=== PATIENT | female | born 1930 | race African-American/Black ===

== ENCOUNTER → 2016-07-04 | Outpatient (CLI) | payer MEDICARE, MEDICAID | LOC: RAD 09:05 | PROVIDERS: ATTEND Internal Medicine | DX: R10.84 Generalized abdominal pain (principal) | CPT/HCPCS: 74000 ==

== ENCOUNTER 2016-07-16 15:53 | Day surgery (SDC) | payer MEDICARE ==
--- NOTE | 2016-07-16 16:42 | Operative Report ---
Operative Report DATE OF SURGERY: 07/16/16 Operative Report: Pre-op diagnosis: Feeding difficulty Post-op diagnosis: Feeding difficulty Surgery: G-tube replacement Medications: None Tissue removed: None Procedure: The old 22 Sami gastrostomy tube was removed after the balloon was deflated. This was replaced with another 22 Sami tube. There was some granulation tissue around the G-tube site. There was good flow of gastric contents after the tube was replaced. She tolerated the procedure well Plan: Resume feeding OPERATION: .
== END 2016-07-16 17:00 | disposition home or self-care (01) ==
LOC: END 15:53
PROVIDERS: ATTEND Internal Medicine Gastroenterology
PROC: 0D20XUZ Change Feeding Device in Upper Intestinal Tract, External Approach (ICD-10-PCS; principal; 2016-07-16)
DX: R63.3 Feeding difficulties (principal); R47.01 Aphasia
CPT/HCPCS: 43760

== ENCOUNTER 2016-11-04 10:18 | Emergency (ER) | payer MEDICARE, MEDICAID ==
[2016-11-04 11:10] LABS: ABSOLUTE BASOPHILS # (AUTO) 0.1 10^3/uL (0.0-0.2); ABSOLUTE EOSINOPHILS # (AUTO) 0.1 10^3/uL (0.0-0.6); ABSOLUTE LYMPHOCYTES (AUTO) 2.2 10^3/uL (0.5-4.7); ABSOLUTE MONOCYTES (AUTO) 0.8 10^3/uL (0.1-1.4); BASOPHILS % (AUTO) 0.9 % (0-2); EOSINOPHILS % (AUTO) 1.6 % (0-6); HEMATOCRIT 40.4 % (36.0-47.0); HEMOGLOBIN 13.6 g/dL (12.0-15.5); HGB HCT DIFFERENCE 0.4; LYMPHOCYTES % (AUTO) 30.3 % (13-45); MEAN CORPUSCULAR HEMOGLOBIN 29.8 pg (27.0-33.4); MEAN CORPUSCULAR HGB CONC 33.6 g/dL (32.0-36.0); MEAN CORPUSCULAR VOLUME 89 fl (80-97); RED BLOOD COUNT 4.56 10^6/uL (3.72-5.28); RED CELL DISTRIBUTION WIDTH 16.3 % (11.5-14.0); SEGMENTED NEUTROPHILS % (AUTO) 56.2 % (42-78); WHITE BLOOD COUNT 7.1 10^3/uL (4.0-10.5)
[2016-11-04 11:32] LABS: APPEARANCE,URINE CLEAR; BILIRUBIN,URINE NEGATIVE (NEGATIVE); GLUCOSE, URINE NEGATIVE (NEGATIVE); KETONES,URINE NEGATIVE (NEGATIVE); LEUKOCYTE ESTERASE,URINE NEGATIVE (NEGATIVE); NITRITE,URINE NEGATIVE (NEGATIVE); PROTEIN,URINE 100 mg/dL (NEGATIVE); URINE SPECIFIC GRAVITY 1.004; UROBILINOGEN,URINE NEGATIVE mg/dL (<2.0)
--- NOTE | 2016-11-04 11:36 | RADIOLOGY REPORT (SQ) ---
EXAM DESCRIPTION: CHEST SINGLE VIEW COMPLETED DATE/TIME: 11/04/2016 11:18 am REASON FOR STUDY: Short of breath COMPARISON: 10/10/2015 and 10/08/2015 NUMBER OF VIEWS: One view. TECHNIQUE: Single frontal radiographic view of the chest acquired. LIMITATIONS: None. FINDINGS: LUNGS AND PLEURA: Some interstitial change and/or slight vascular congestion again noted. Heart partially obscures the left base, with Patchy basilar change noted. MEDIASTINUM AND HILAR STRUCTURES: Stable. HEART AND VASCULAR STRUCTURES: Cardiomegaly. Some interstitial change and/or slight vascular congest ion. BONES: No acute findings. HARDWARE: Surgical clips lower neck. OTHER: No other significant finding. IMPRESSION: Cardiomegaly. Some interstitial change and/or slight vascular congestion. Patchy cardenas es left lung base. TECHNICAL DOCUMENTATION: JOB ID: [id number] [employer]- All Rights Reserved
[2016-11-04 12:06] LABS: ALANINE AMINOTRANSFERASE 45 U/L (9-52); ALBUMIN 3.7 g/dL (3.5-5.0); ALKALINE PHOSPHATASE 154 U/L (38-126); ANION GAP 11 (5-19); ASPARTATE AMINO TRANSFERASE 33 U/L (14-36); BILIRUBIN,DIRECT 0.2 mg/dL (0.0-0.4); BILIRUBIN,TOTAL 0.4 mg/dL (0.2-1.3); BLOOD UREA NITROGEN 24 mg/dL (7-20); CARBON DIOXIDE 24 mmol/L (22-30); CHLORIDE 104 mmol/L (98-107); CREATINE KINASE 64 U/L (30-135); CREATININE RESULT 0.58 mg/dL (0.52-1.25); GLUCOSE 145 mg/dL (75-110); POTASSIUM 3.9 mmol/L (3.6-5.0); SODIUM 138.7 mmol/L (137-145); TOTAL PROTEIN 8.6 g/dL (6.3-8.2)
[2016-11-04 12:17] LABS: CREATINE KINASE MB 2.68 ng/mL (<4.55)
[2016-11-04 12:18] LABS: TROPONIN I < 0.012 ng/mL
[2016-11-04] MEDS ORDERED: NORMAL SALINE 1000 ML 1,000 ML IV ONE (12:43)
[2016-11-04] MEDS ORDERED: CEFTRIAXONE 1 GM/D5W RTU 50 ML IV ONE (12:45)
--- NOTE | 2016-11-04 12:49 | ER Document Report ---
ED General - General Chief Complaint: Breathing Difficulty Stated Complaint: DIFFICULTY BREATHING Time Seen by Provider: 11/04/16 10:28 Notes: Patient reportedly has been short of breath for a couple of days. 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 She has a feeding tube. She lives at home with family. When EMS arrived on the scene this morning, patient had some wheezes and an oxygen saturation was 89%. They put the patient on 4 L of oxygen and gave her a couple of nebulizer treatments with albuterol in route to the emergency department. Family is concerned that she may have aspirated, which she has done before, or that she may have a UTI because she is gotten this way with those infections previously, as well. Her urine has been very dark yellow. She has not had any fever. Patient does have a history of COPD. Patient has a pacemaker. TRAVEL OUTSIDE OF THE [place] IN LAST 30 DAYS: No - Related Data Allergies/Adverse Reactions: phenytoin sodium [From Dilantin] Allergy (Verified 07/12/16 14:28) phenytoin sodium extended [From Dilantin] Allergy (Verified 07/12/16 14:28) Past Medical History - Social History Smoking Status: Unknown if Ever Smoked Cigarette use (# per day): No Chew tobacco use (# tins/day): No Family History: Reviewed & Not Pertinent, CVA - Past Medical History Cardiac Medical History: Reports: Hx Congestive Heart Failure, Hx Coronary Artery Disease, Hx Hypercholesterolemia, Hx Hypertension, Other - Has a pacemaker. 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, 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 Endocrine Medical History: Reports: Hx Diabetes Mellitus Type 2 GI Medical History: Reports: Hx Gastroesophageal Reflux Disease Musculoskeltal Medical History: Reports Hx Arthritis Psychiatric Medical History: Reports: Hx Dementia Infectious Medical History: Reports: Hx C-Diff Past Surgical History: Reports: Hx Section, Hx Cholecystectomy, Hx Hysterectomy, Hx Orthopedic Surgery - left hip, Hx Thyroid Surgery - Immunizations Hx Diphtheria, Pertussis, Tetanus Vaccination: - unknown Hx Pneumococcal Vaccination: 10/05/14 Review of Systems - Review of Systems Notes: REVIEW OF SYSTEMS: From the family CONSTITUTIONAL : Denies fever. EENT: Denies eye, ear, nose or mouth or throat pain or other symptoms. CARDIOVASCULAR: Denies chest pain. RESPIRATORY: See HPI.. GASTROINTESTINAL: Denies abdominal pain or nausea, vomiting, or diarrhea. GENITOURINARY: See HPI. MUSCULOSKELETAL: Denies back or neck pain. Denies joint pain or swelling. SKIN: Denies rash or skin lesions. NEUROLOGICAL: Residual right-sided paralysis from prior stroke. ALL OTHER SYSTEMS REVIEWED AND NEGATIVE. Physical Exam - Vital signs Vitals: Pulse Ox 97 11/04/16 10:23 Interpretation: No: Hypoxic - Notes Notes: PHYSICAL EXAMINATION: GENERAL: Well-appearing, in no acute distress. Vital signs are all essentially normal at this time. O2 sat 97-98% on room air. Patient did receive 2 nebul[address] treatments on the way here by EMS. HEAD: Atraumatic, normocephalic. NECK: Normal range of motion, supple. LUNGS: Breath sounds clear and equal bilaterally. No wheezes heard at this time. HEART: Regular rate and rhythm without murmurs. ABDOMEN: Soft, nontender. No guarding or rebound. Feeding tube present BACK: No tenderness throughout entire back. EXTREMITIES: Normal range of motion without pain. No edema. NEUROLOGICAL: Patient is nonverbal. She has right sided paralysis residual from her prior stroke. No further testing can be done. SKIN: Warm, dry, no rashes. Course - Re-evaluation Re-evalutation: 11/04/16 12:46 Patient has been stable since her arrival here. She received 2 nebulizers of albuterol in route to the emergency department. She has required no medication since then. She has been on room air the entire time and her oxygen level is staying at the 97-98% level. All of her labs are essentially normal. No elevation of her white count. No significant abnormality of her electrolytes. No UTI evident. Her chest x-ray reveals what could be a small patchy infiltrate in the left base. I feel the patient can be discharged home for treatment there with antibiotics. She has a home nebulizer for albuterol 4 times a day as needed and to advise them to give her 4 times a day, for the next couple of days, and then as needed after that. She also has a steroid medication to use in the nebulizer twice a day. I discussed the plan of care with the family. 11/04/16 20:59 - Vital Signs Vital signs: Temp Pulse Resp BP Pulse Ox 97.7 F 142/75 H 98 11/04/16 12:02 11/04/16 14:38 11/04/16 14:38 - Laboratory Result Diagrams: 11/04/16 10:43 11/04/16 11:37 Laboratory results interpreted by me: 11/04/16 11/04/16 11/04/16 10:43 10:43 11:37 RDW 16.3 H BUN 24 H Glucose 145 H Alkaline Phosphatase 154 H Total Protein 8.6 H Urine Protein 100 H Discharge - Discharge Clinical Impression: Pneumonia Qualifiers: Pneumonia type: due to unspecified organism Laterality: left Lung location: lower lobe of lung Qualified Code(s): J18.1 - Lobar pneumonia, unspecified organism Condition: Stable Disposition: HOME, SELF-CARE Additional Instructions: UPPER RESPIRATORY ILLNESS: You have a viral infection of the respiratory passages -- a "cold." This common infection causes nasal congestion, drainage, and often sore throat and cough. It is highly contagious. The disease usually lasts about 10 to 14 days. There is no "cure" for the viral infection -- it must run its course. If there is a complication, such as bacterial infection in the nose, sinuses, middle ear, or bronchial tubes, antibiotics may be required. The antibiotics won't affect the virus. Drink plenty of fluids. A humidifier may help. An expectorant medication or decongestant may make you more comfortable. Use acetaminophen or ibuprofen for fever or aches. See the doctor if fever persists over two days, if there is any significant worsening of your symptoms, or if you simply fail to improve as expected. PNEUMONIA: Your examination indicates that you have pneumonia. This is an infection of the lung tissue, usually caused by bacteria or a virus. Symptoms include cough, fever, shaking chills, chest pain, shortness of breath, and coughing up bloody sputum. Treatment for bacterial pneumonia includes rest, antibiotics for 10 to 14 days, increasing your clear liquid intake, a cool mist humidifier at your bedside, and fever medication. Often, a repeat chest X-ray is performed in a few weeks--even if you feel better--to ascertain whether the infection has completely resolved and no underlying lung problem is present. You should call the physician if you develop persistent vomiting, high fever that does not respond to fever medication, increasing shortness of breath , confusion, or lethargy. Also, failure to improve within two to three days is an indication for re-examination. ANTIBIOTIC INJECTION: You have been given an antibiotic injection. Sometimes the injection must be combined with antibiotic pills. For some infections, the shot provides all the antibiotic that's needed. Common side effects of antibiotics include nausea, intestinal cramping, or diarrhea. These are very unusual following a shot. Women may develop vaginal yeast infections, and babies can get yeast ( thrush) in the mouth following the use of antibiotics. Contact your physician if you develop significant side effects from this medication. Allergy to this antibiotic can result in hives, wheezing, faintness, or itching. If symptoms of allergy occur, call the doctor at once. ROCEPHIN: You have been given an injection of an antibiotic called Rocephin ( ceftriaxone). Sometimes the injection must be combined with antibiotic pills. For some infections, such as an uncomplicated ear infection, Rocephin provides all the antibiotic that's needed. The antibiotic will be in your body for about two days. For serious infections, we usually repeat doses of Rocephin daily. Side effects are very unusual following a shot. Women may develop vaginal yeast infections, and babies can get yeast (thrush) in the mouth following the use of antibiotics. Contact your physician if you have symptoms with this medication. Allergy to this antibiotic can result in hives, wheezing, faintness, or itching. If symptoms of allergy occur, call the doctor at once. ANTIBIOTIC THERAPY: You have been given an antibiotic prescription. It's important that you take all the medication, unless instructed otherwise by your physician. Failure to complete the entire course can result in relapse of your condition. Common side effects of antibiotics include nausea, intestinal cramping, or diarrhea. Women may develop vaginal yeast infections, and babies can get yeast (thrush) in the mouth following the use of antibiotics. Contact your physician if you develop significant side effects from this medication. Allergy to this antibiotic can result in hives, wheezing, faintness, or itching. If symptoms of allergy occur, stop the medication and call the doctor. LEVOFLOXACIN: You have been given an antibacterial agent, levofloxacin (Levaquin). This medicine is not related to the penicillins, sulfas, cephalosporins, or tetracyclines. It is often given to patients who are allergic to these drugs. It has been chosen for you either because other drugs are not appropriate, or because of the nature of your problem. Levaquin should not be taken with antacids, as these can decrease its effectiveness. It can be taken without regard to meals. LEVAQUIN SHOULD NOT BE TAKEN BY CHILDREN, NURSING WOMEN, OR WOMEN. Although Levaquin is usually well-tolerated, common side effects can include nausea and diarrhea. Contact your doctor if you experience any unusual symptoms while on this medication, such as joint pain or swelling, shortness of breath, wheezing, faintness, or hives. BRONCHOSPASM: You have tightness in the bronchial tubes, called bronchospasm. This often occurs with bronchial infections. Allergies, inhaled chemicals, and polluted or cold air can also provoke bronchospasm. It's more likely in patients with asthma in the family. Emergency treatment of bronchospasm may include adrenaline shots or bronchodilator aerosol. You may feel lightheaded and have a rapid pulse for an hour or two. Rest and get plenty of fluids. At home, we'll treat you with a bronchodilator inhaler. Antibiotics and corticosteroids may be required for some patients. Until you recover, avoid chemical fumes, dusts, pollens, and exercising in very cold or dry air. If you smoke, stop now!! If you develop a fever, increased wheezing, chest pain, or severe shortness of breath, you should contact the doctor immediately. INHALED BRONCHODILATORS: You have received a treatment of and/or prescription for an inhaled bronchodilator -- a medication which stimulates the airways in the lung to dilate. This improves the flow of air in asthma, bronchitis, and emphysema. These medicines have some similarity to adrenaline, and can cause similar side effects: shakiness, racing heart, and a sense of nervousness. These side effects decrease with time. Contact your doctor if these side effects are severe. Do not over-use the medicine. Too-frequent use of the inhaler may make it ineffective. Call your doctor if the inhaler is not controlling your symptoms at the prescribed doses. Give the nebulizer with albuterol 4 times a day for the next couple of days and then cut back to as needed. Give the nebulizer with the other medication, the steroid medication, twice a day, as you have been giving it. USE OF ACETAMINOPHEN (Tylenol): Acetaminophen may be taken for pain relief or fever control. It's much safer than aspirin, offering a wider range of "safe" dosages. It is safe during . Some brand names are Tylenol, Panadol, Datril, Anacin 3, Tempra, and Liquiprin. Acetaminophen can be repeated every four hours. The following are maximum recommended dosages: >89 pounds or adults 650 mg to 900 mg Acetaminophen can be repeated every four hours. Maximum dose not to exceed 4000 mg a day. FOLLOW-UP CARE: If you have been referred to a physician for follow-up care, call the physician s office for an appointment as you were instructed or within the next two days. If you experience worsening or a significant change in your symptoms, notify the physician immediately or return to the Emergency Department at any time for re-evaluation. Prescriptions: Levofloxacin [Levaquin 750 mg Tablet] 750 mg PO DAILY #5 tablet Referrals: FRANKLIN STAPLES MD [Primary Care Provider] - Follow up as needed
--- NOTE | 2016-11-04 13:39 | EKG REPORT ---
SEVERITY:- ABNORMAL ECG - VENTRICULAR PACED RHYTHM . : Confirmed by: Dalton Chiu MD 04-Nov-2016 13:38:19
[2016-11-04 14:53] VITALS: BP 142/75
== END 2016-11-04 15:33 | disposition home or self-care (01) ==
LOC: ER 10:18
DX: J18.1 Lobar pneumonia, unspecified organism (principal); R06.02 Shortness of breath; Z86.73 Personal history of transient ischemic attack (TIA), and cerebral infarction without residual deficits; R06.2 Wheezing
CPT/HCPCS: 93005; 99285; 51702; 96365; 36415; 87040; 82553; 82550; 85025; 80053; 81001; 84484; 71010; 93010; J7030; J0696

== ENCOUNTER → 2016-11-19 | Day surgery (SDC) | payer MEDICARE, MEDICAID ==
--- NOTE | 2016-11-19 17:00 | Operative Report ---
Operative Report DATE OF SURGERY: 11/19/16 Operative Report: Pre-op diagnosis: Feeding difficulty Post-op diagnosis: Feeding difficulty Surgery: G-tube replacement Medications: None Tissue removed: None Procedure: The old 22 German gastrostomy tube was removed after the balloon was deflated. This was replaced with another 22 German tube. There was good flow of gastric contents after the tube was replaced. She tolerated the procedure well Plan: Resume feeding OPERATION: .
--- NOTE | 2016-11-19 17:03 | RADIOLOGY REPORT (SQ) ---
EXAM DESCRIPTION: CHEST PA/LAT COMPLETED DATE/TIME: 11/19/2016 4:46 pm REASON FOR STUDY: viral pneumonia COMPARISON: 10/10/2015, 10/08/2015 EXAM PARAMETERS: NUMBER OF VIEWS: two views TECHNIQUE: Digital Frontal and Lateral radiographic views of the chest acquired. RADIATION DOSE: NA LIMITATIONS: none FINDINGS: LUNGS AND PLEURA: Bandlike lingular atelectasis. Lungs are otherwise clear. No pleural effusions or pneumothorax. MEDIASTINUM AND HILAR STRUCTURES: No masses or contour abnormalities. HEART AND VASCULAR STRUCTURES: Stable cardiomegaly BONES: No acute findings. HARDWARE: Unchanged left-sided dual lead pacemaker. Surgical clips right neck OTHER: No other significant finding. IMPRESSION: Bandlike airspace disease over the left heart border, likely atelectasis. Pneumonia cou ld not be excluded. TECHNICAL DOCUMENTATION: JOB ID: [id number] [employer]- All Rights Reserved
== END ==
LOC: END 15:55
PROVIDERS: ATTEND Internal Medicine Gastroenterology
PROC: 0D20XUZ Change Feeding Device in Upper Intestinal Tract, External Approach (ICD-10-PCS; principal; 2016-11-19)
DX: R63.3 Feeding difficulties (principal); J12.9 Viral pneumonia, unspecified; J98.11 Atelectasis; Z95.0 Presence of cardiac pacemaker
CPT/HCPCS: 43760; 71020

== ENCOUNTER → 2016-12-11 | Outpatient (CLI) | payer MEDICARE, MEDICAID ==
--- NOTE | 2016-12-11 12:11 | RADIOLOGY REPORT (SQ) ---
EXAM DESCRIPTION: CHEST SINGLE VIEW COMPLETED DATE/TIME: 12/11/2016 11:23 am REASON FOR STUDY: UNSPEC BACTERIAL PNEUMONIA (J15.9) COMPARISON: 11/19/2016 EXAM PARAMETERS: NUMBER OF VIEWS: One view. TECHNIQUE: Single frontal radiographic view of the chest acquired. RADIATION DOSE: NA LIMITATIONS: None. FINDINGS: LUNGS AND PLEURA: Persistent linear density left mid lung zone. Possible residual change from previous pneumonic infiltrate on 11/04/2016 MEDIASTINUM AND HILAR STRUCTURES: No masses. Contour normal. HEART AND VASCULAR STRUCTURES: Heart normal in size. Normal vasculature. BONES: No acute findings. HARDWARE: None in the chest. OTHER: No other significant finding. IMPRESSION: Persistent linear density left mid lung zone. Developing scarring from previous infecti on at this level may be a consideration. TECHNICAL DOCUMENTATION: JOB ID: [id number]
== END ==
LOC: RAD 11:06
PROVIDERS: ATTEND Internal Medicine
DX: J15.9 Unspecified bacterial pneumonia (principal)
CPT/HCPCS: 71010

== ENCOUNTER → 2016-12-30 | Outpatient (CLI) | payer MEDICARE, MEDICAID ==
--- NOTE | 2016-12-30 12:26 | RADIOLOGY REPORT (SQ) ---
EXAM DESCRIPTION: U/S ABDOMEN LIMITED W/O DOP COMPLETED DATE/TIME: 12/30/2016 10:12 am REASON FOR STUDY: ABNORMAL RESULTS OF LIVER FUNCTION STUDIES R94.5 ABNORMAL RESULTS OF LIVER FUNCTI ON STUDIES COMPARISON: CT abdomen pelvis 12/24/2014 TECHNIQUE: Dynamic and static grayscale images acquired of the abdomen and recorded on PACS. Additio nal selected color Doppler and spectral images recorded. LIMITATIONS: Large patient, upper abdominal bowel gas FINDINGS: PANCREAS: Not well seen LIVER: No masses. Echotexture normal. LIVER VASCULATURE: Normal directional flow of the main portal vein and hepatic veins. GALLBLADDER: Surgically absent ULTRASOUND-DETECTED FRAZIER'S SIGN: Not applicable INTRAHEPATIC DUCTS AND COMMON DUCT: CBD and intrahepatic ducts normal caliber. No filling defects. D istal most common duct not well seen due to duodenum gas INFERIOR VENA CAVA: Not well seen AORTA: Not well seen RIGHT KIDNEY: Normal size. Normal echogenicity. No solid or suspicious masses. No hydronephrosis. No calcifications. PERITONEAL AND RIGHT PLEURAL SPACE: No ascites or effusions. OTHER: No other significant findings. IMPRESSION: Limited visualization of the pancreatic head, distal common duct, hepatic vena cava and abdominal aorta. Post cholecystectomy Grossly normal liver size and echotexture, no dilated ducts or masses are identified. TECHNICAL DOCUMENTATION: JOB ID: [id number] [employer]- All Rights Reserved
== END ==
LOC: RAD 09:06
PROVIDERS: ATTEND Internal Medicine
DX: R94.5 Abnormal results of liver function studies (principal)
CPT/HCPCS: 76705

== ENCOUNTER 2017-01-29 13:44 | Emergency (ER) | payer MEDICARE, MEDICAID ==
--- NOTE | 2017-01-29 14:04 | ER Document Report ---
ED General - General Chief Complaint: Problem with Feeding Tube Stated Complaint: GENERAL WEAKNESS Time Seen by Provider: 01/29/17 14:04 Notes: 86-year-old female patient from home for evaluation. Possible issues with feeding tube. The daughter states that most of the liquid is not passing and she seems to be getting weak. Increased cough as well. Feeding tube placed in November by Dr. Rey. Gets home care by her daughter as well as a niece who is a CHECK EMB[employer]ER. No bedsores. No fever. Has had frequent UTIs. Daughter is concerned that mom may be getting dehydrated or having some electrolyte issues. Had a stroke a while back and has issues with speech as well as right-sided deficit. Inability to ambulate. Sometimes she can talk but other times she cannot. No worsening mental status change. Actually daughter states that over the last couple of days her mental status has been improving not getting worse. TRAVEL OUTSIDE OF THE [place] IN LAST 30 DAYS: No - Related Data Allergies/Adverse Reactions: phenytoin sodium [From Dilantin] Allergy (Verified 07/12/16 14:28) phenytoin sodium extended [From Dilantin] Allergy (Verified 07/12/16 14:28) Home Medications: Current Home Medications Amlodipine Besylate 5 mg PEG DAILY 01/29/17 [History] Fentanyl [Fentanyl] 1 patch TD Q3D 01/29/17 [History] Hydrocodone/Acetaminophen [Hydrocodon-Acetaminophen 5-325] 1 tab PEG Q6HP PRN [History] Past Medical History - General Information source: Parent, Relative, Legal Guardian Cannot obtain history due to: Dementia, Mentally challenged - Social History Smoking Status: Unknown if Ever Smoked Family History: Reviewed & Not Pertinent, CVA - Past Medical History Cardiac Medical History: Reports: Hx Congestive Heart Failure, Hx Coronary Artery Disease, Hx Hypercholesterolemia, Hx Hypertension Denies: Hx Heart Attack Pulmonary Medical History: Reports: Hx COPD Denies: Hx Asthma, Hx Bronchitis, Hx Pneumonia Neurological Medical History: Reports: 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, 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 Endocrine Medical History: Reports: Hx Diabetes Mellitus Type 2 GI Medical History: Reports: Hx Gastroesophageal Reflux Disease Musculoskeltal Medical History: Reports Hx Arthritis Psychiatric Medical History: Reports: Hx Dementia Infectious Medical History: Reports: Hx C-Diff Past Surgical History: Reports: Hx Section, Hx Cholecystectomy, Hx Hysterectomy, Hx Orthopedic Surgery - left hip, Hx Thyroid Surgery - Immunizations Hx Diphtheria, Pertussis, Tetanus Vaccination: - unknown Hx Pneumococcal Vaccination: 10/05/14 Review of Systems - Review of Systems Constitutional: No symptoms reported EENT: No symptoms reported Cardiovascular: No symptoms reported Respiratory: No symptoms reported Gastrointestinal: No symptoms reported, See HPI, Other Genitourinary: No symptoms reported Female Genitourinary: No symptoms reported Musculoskeletal: No symptoms reported Skin: No symptoms reported Hematologic/Lymphatic: No symptoms reported Neurological/Psychological: No symptoms reported Physical Exam - Vital signs Vitals: Resp 21 H 01/29/17 14:02 Interpretation: Normal - General General appearance: Appears well, Alert - HEENT Head: Normocephalic, Atraumatic Eyes: Normal Pupils: PERRL - Respiratory Respiratory status: No respiratory distress Chest status: Nontender Breath sounds: Normal, Nonproductive cough, Other - Rattling sound upper airway Chest palpation: Normal - Cardiovascular Rhythm: Regular Heart sounds: Normal auscultation Murmur: No - Abdominal Inspection: Normal Distension: No distension Bowel sounds: Normal Tenderness: Nontender Organomegaly: No organomegaly Notes: There is a feeding tube present in the right upper abdomen. No bleeding around feeding tube site. Feeding tube site looks well and intact. - Back Back: Normal, Nontender - Extremities General upper extremity: Normal inspection, Nontender, Normal color, Normal ROM , Normal temperature General lower extremity: Normal inspection, Nontender, Normal color, Normal ROM , Normal temperature, Normal weight bearing. No: Tereza's sign - Neurological Neuro grossly intact: Yes Cognition: Normal Kyburz Coma Scale Eye Opening: Spontaneous Ike Coma Scale Motor: Obeys Commands Speech: Dysarthria, Expressive aphasia - Psychological Associated symptoms: Normal affect, Normal mood - Skin Skin Temperature: Warm Skin Moisture: Dry Skin Color: Normal Course - Vital Signs Vital signs: Temp Pulse Resp BP Pulse Ox 17 158/90 H 81 L 01/29/17 17:09 01/29/17 17:09 01/29/17 17:09 Tube Placement 01/29/17 00:00 IMPRESSION: G-tube is patent, balloon tip is in good positioning. Acute Abdomen Series 01/29/17 14:21 IMPRESSION: Nonspecific bowel gas pattern. No acute pulmonary infiltrates. To evaluate the patient's gastrostomy tube, recommend tube injection under fluoroscopy given the patient's size. Guidance Fluoroscopy 01/29/17 16:18 IMPRESSION: G-tube is patent, balloon tip is in good positioning. Labs fairly unremarkable. There is a slight elevation in the BNP but no priors. Patient does not appear to be in fulminant failure. Does not have significant lower extremity edema. No obvious edema seen on chest x-ray. We will culture the urine. The imaging studies were unremarkable. At this time feel comfortable sending patient home. Family members are comfortable with this plan. - Laboratory Result Diagrams: 01/29/17 15:00 01/29/17 15:00 Laboratory results interpreted by me: 01/29/17 01/29/17 01/29/17 14:45 15:00 15:00 RDW 15.2 H BUN 21 H Glucose 115 H Alkaline Phosphatase 196 H NT-Pro-B Natriuret Pep Urine Protein 100 H Urine Blood SMALL H Ur Leukocyte Esterase MODERATE H Urine Ascorbic Acid 20 H 01/29/17 15:00 RDW BUN Glucose Alkaline Phosphatase NT-Pro-B Natriuret Pep 606 H Urine Protein Urine Blood Ur Leukocyte Esterase Urine Ascorbic Acid - EKG Interpretation by Me When compared to previous EKG there are: Other - This is a paced ventricular rhythm with rate of 82. Nonspecific intraventricular conduction delay with left axis deviation. No signs of acute ischemia. Discharge - Discharge Clinical Impression: Complication of feeding tube Condition: Good Disposition: HOME, SELF-CARE Additional Instructions: Abdominal Pain The feeding tube was assessed and appears to be functioning properly and in good position. Please follow-up with your cash applications associate or surgeon for further evaluation of the feeding tube. There may be other issues that need to be addressed. If for any reason you feel that your loved one is getting worse please return immediately for repeat evaluation. There are many causes of abdominal pain. Pain can mean a serious problem requiring surgery (such as appendicitis). It can also be an innocent problem that goes away on its own (such as a viral infection). Often, time must pass to determine the cause of pain. The physician does not feel that hospitalization is necessary, at present. Things may change within the next 24 hours. Call the doctor or come back for re- examination if any problems occur, such as: (1) Pain that becomes more severe, steady, or becomes concentrated in one specific area. Also, pain that is more severe with movement or coughing. (2) Vomiting that persists or becomes more frequent. (3) Blood in the vomitus, urine, or bowel movements. Blood in the stool may have a tarry or black appearance. (4) Shaking chills or fever greater than 100 degrees F. (5) The abdomen becomes more distended or swollen. (6) Bowel movements cease. (7) Failure to improve as expected. Referrals: FRANKLIN STAPLES MD [Primary Care Provider] - Follow up as needed
[2017-01-29] MEDS ORDERED: NORMAL SALINE 500 ML IV ONE (14:22)
[2017-01-29 15:07] LABS: APPEARANCE,URINE CLEAR; BILIRUBIN,URINE NEGATIVE (NEGATIVE); GLUCOSE, URINE NEGATIVE (NEGATIVE); KETONES,URINE NEGATIVE (NEGATIVE); LEUKOCYTE ESTERASE,URINE MODERATE (NEGATIVE); NITRITE,URINE NEGATIVE (NEGATIVE); PROTEIN,URINE 100 mg/dL (NEGATIVE); URINE SPECIFIC GRAVITY 1.006; UROBILINOGEN,URINE NEGATIVE mg/dL (<2.0)
[2017-01-29 15:16] LABS: ABSOLUTE BASOPHILS # (AUTO) 0.1 10^3/uL (0.0-0.2); ABSOLUTE EOSINOPHILS # (AUTO) 0.2 10^3/uL (0.0-0.6); ABSOLUTE LYMPHOCYTES (AUTO) 1.7 10^3/uL (0.5-4.7); ABSOLUTE MONOCYTES (AUTO) 0.8 10^3/uL (0.1-1.4); ABSOLUTE NEUT (AUTO) 5.3 10^3/uL (1.7-8.2); HEMOGLOBIN 12.5 g/dL (12.0-15.5); HGB HCT DIFFERENCE -0.5; LYMPHOCYTES % (AUTO) 20.6 % (13-45); MEAN CORPUSCULAR HEMOGLOBIN 29.3 pg (27.0-33.4); MEAN CORPUSCULAR VOLUME 89 fl (80-97); MONOCYTES % (AUTO) 10.2 % (3-13); RED BLOOD COUNT 4.28 10^6/uL (3.72-5.28); RED CELL DISTRIBUTION WIDTH 15.2 % (11.5-14.0); SEGMENTED NEUTROPHILS % (AUTO) 66.2 % (42-78)
[2017-01-29 15:22] LABS: PROTHROMBIN TIME 13.5 SEC (11.4-15.4)
[2017-01-29 15:35] LABS: ALANINE AMINOTRANSFERASE 52 U/L (9-52); ALBUMIN 3.6 g/dL (3.5-5.0); ALKALINE PHOSPHATASE 196 U/L (38-126); ANION GAP 10 (5-19); ASPARTATE AMINO TRANSFERASE 35 U/L (14-36); BILIRUBIN,DIRECT 0.2 mg/dL (0.0-0.4); BILIRUBIN,TOTAL 0.3 mg/dL (0.2-1.3); BLOOD UREA NITROGEN 21 mg/dL (7-20); CALCIUM 9.3 mg/dL (8.4-10.2); CARBON DIOXIDE 27 mmol/L (22-30); CHLORIDE 107 mmol/L (98-107); CREATINE KINASE 36 U/L (30-135); CREATININE RESULT 0.64 mg/dL (0.52-1.25); GLUCOSE 115 mg/dL (75-110); POTASSIUM 4.1 mmol/L (3.6-5.0); SODIUM 143.9 mmol/L (137-145); TOTAL PROTEIN 8.2 g/dL (6.3-8.2)
[2017-01-29 15:49] LABS: TROPONIN I < 0.012 ng/mL
--- NOTE | 2017-01-29 16:02 | RADIOLOGY REPORT (SQ) ---
EXAM DESCRIPTION: ACUTE ABDOMEN SERIES COMPLETED DATE/TIME: 01/29/2017 3:46 pm REASON FOR STUDY: feeding tube assessment with gastrographin please COMPARISON: None. NUMBER OF VIEWS: Three views. TECHNIQUE: Frontal chest, supine abdomen and upright abdomen radiographic images acquired. LIMITATIONS: Portable technique, obese patient FINDINGS: CHEST: Lungs clear of infiltrates. Stable moderate cardiomegaly, prominent central pulmon jae vessels and left-sided pacemaker. Old clips post right lobe thyroidectomy FREE AIR: None. No abnormal gas collections. BOWEL GAS PATTERN: Few air-fluid levels in small bowel in the mid epigastrium. Air in nondistended r ight colon. Nonspecific bowel gas pattern. CALCIFICATIONS: No suspicious calcifications. HARDWARE: In the mid epigastrium, a gastrostomy tube is present over the gastric antrum. No contrast has been injected on these films through the G-tube. Clips right upper quadrant post cholecystectom y. SOFT TISSUES: No gross mass or suggestion of organomegaly. BONES: No acute fracture. No worrisome bone lesions. Old left hip replacement OTHER: Limitations of this study were discussed with Dr. Alcantar IMPRESSION: Nonspecific bowel gas pattern. No acute pulmonary infiltrates. To evaluate the patient's gastrostomy tube, recommend tube injection under fluoroscopy given the brian ent's size. TECHNICAL DOCUMENTATION: JOB ID: [id number] [employer]- All Rights Reserved
--- NOTE | 2017-01-29 16:40 | RADIOLOGY REPORT (SQ) ---
EXAM DESCRIPTION: INJECT EXISTING/TUBE PLACEMENT; INTRO/GI TUBE W/FLUORO COMPLETED DATE/TIME: 01/29/2017 4:29 pm REASON FOR STUDY: eval feeding tube with gastrographin; g tube eval COMPARISON: Abdominal films same date FLUOROSCOPY TIME: 34 seconds 5 series of digital images saved to PACS. TECHNIQUE: Injection of contrast through existing catheter. Fluoroscopic spot films saved to PACS d emonstrating final catheter position. LIMITATIONS: None. FINDINGS: CONTRAST INJECTED: 40 mL of Gastrografin was injected into the patient's existing gastrost radha tube TUBE POSITION: The tip of the catheter is within the stomach. Contrast can be seen emptying out of th e stomach and into the small intestine. IMPRESSION: G-tube is patent, balloon tip is in good positioning. COMMENT: Quality ID [id number]: Final reports for procedures using fluoroscopy that document radiation exp osure indices, or exposure time and number of fluorographic images (if radiation exposure indices are not available) TECHNICAL DOCUMENTATION: JOB ID: [id number] [employer]- All Rights Reserved
--- NOTE | 2017-01-29 19:13 | EKG REPORT ---
SEVERITY:- ABNORMAL ECG - A SENSED VENTRICULAR-PACED COMPLEXES : Confirmed by: Warner Solorio 29-Jan-2017 19:13:04
[2017-01-29 21:47] VITALS: BP 131/58
== END 2017-01-29 21:15 | disposition home or self-care (01) ==
LOC: ER 13:44
PROC: 0D20XUZ Change Feeding Device in Upper Intestinal Tract, External Approach (ICD-10-PCS; principal; 2017-01-29)
DX: K94.20 Gastrostomy complication, unspecified (principal); R53.1 Weakness; Z79.899 Other long term (current) drug therapy
CPT/HCPCS: 93005; 99285; 51701; 36415; 87086; 82550; 85025; 85610; 87088; 80053; 81001; 84484; 87186; 83880; 49465; 74022; 74340; 93010; J7040

== ENCOUNTER 2017-02-13 04:53 | Inpatient (IN) | payer MEDICARE, MEDICAID ==
--- NOTE | 2017-02-13 05:11 | ER Document Report ---
ED Respiratory Problem - General Mode of Arrival: Medic Information source: Relative, Emergency Med Personnel TRAVEL OUTSIDE OF THE [place] IN LAST 30 DAYS: No <ON TELLEZ - Last Filed: 02/13/17 05:04> <MAXI SIMPSON - Last Filed: 02/13/17 07:08> - General Chief Complaint: Respiratory Distress Stated Complaint: RESPIRATORY DISTRESS Notes: Patient is an 86 year old female that presents to the emergency department today with complaints of respiratory distress. EMS reports the patient was 88% on arrival. Patient was treated for a UTI last week and just finished treatment yesterday. Daughter at bedsides states that she has a history of seizures but she did not see any seizure like activity today. History is limited. (NO TELLEZ) - Related Data Allergies/Adverse Reactions: phenytoin sodium [From Dilantin] Allergy (Verified 07/12/16 14:28) phenytoin sodium extended [From Dilantin] Allergy (Verified 07/12/16 14:28) Past Medical History - General Information source: Emergency Med Personnel, [facility] Records - Social History Smoking Status: Unknown if Ever Smoked Cigarette use (# per day): No Frequency of alcohol use: None Drug Abuse: None Family History: Reviewed & Not Pertinent, CVA - Past Medical History Cardiac Medical History: Reports: Hx Congestive Heart Failure, Hx Coronary Artery Disease, Hx Hypercholesterolemia, Hx Hypertension Pulmonary Medical History: Reports: Hx COPD Neurological Medical History: Reports: 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, Hx Seizures - NO SEIZURE SINCE PACEMAKER 2016 Endocrine Medical History: Reports: Hx Diabetes Mellitus Type 2 GI Medical History: Reports: Hx Gastroesophageal Reflux Disease Musculoskeltal Medical History: Reports Hx Arthritis Psychiatric Medical History: Reports: Hx Dementia Infectious Medical History: Reports: Hx C-Diff Past Surgical History: Reports: Hx Section, Hx Cholecystectomy, Hx Hysterectomy, Hx Orthopedic Surgery - left hip, Hx Thyroid Surgery - Immunizations Hx Diphtheria, Pertussis, Tetanus Vaccination: - unknown Hx Pneumococcal Vaccination: 10/05/14 <NO TELLEZ - Last Filed: 02/13/17 05:04> Review of Systems - Review of Systems -: Yes ROS unobtainable due to patient's medical condition <NO TELLEZ - Last Filed: 02/13/17 05:04> Physical Exam - General General appearance: Alert In distress: Mild - Respiratory Respiratory status: Depressed respirations - Bilateral bases Breath sounds: No: Wheezing - Cardiovascular Rhythm: Regular - Abdominal Inspection: Normal Tenderness: Nontender - Extremities General upper extremity: Other - Contracted at baseline General lower extremity: Other - Skin Skin Temperature: Warm Skin Moisture: Dry <MAXI SIMPSON - Last Filed: 02/13/17 07:08> - Vital signs Vitals: Resp Pulse Ox 17 100 02/13/17 05:00 02/13/17 05:00 Course <NO TELLEZ - Last Filed: 02/13/17 05:04> - Laboratory Result Diagrams: 02/13/17 05:35 02/13/17 05:35 - Diagnostic Test Radiology reviewed: Reports reviewed <MAXI SIMPSON - Last Filed: 02/13/17 07:08> - Re-evaluation Re-evalutation: 02/13/17 07:07 Patient presents to the emergency department with difficulty breathing. Patient has a history of stroke and seizures. Patient has had recently with sounds like aspiration from her G-tube backing up. No evidence for pneumonia on x-ray. Chemistry is still pending. Patient will be signed out to Dr. Das. (MAXI SIMPSON) - Vital Signs Vital signs: Temp Pulse Resp BP Pulse Ox 17 175/92 H 100 02/13/17 06:00 02/13/17 05:03 02/13/17 06:00 - Laboratory Laboratory results interpreted by me: 02/13/17 02/13/17 02/13/17 05:05 05:35 06:00 RDW 15.9 H Seg Neutrophils % 78.2 H Lymphocytes % 12.6 L POC Glucose 139 H Urine Protein 100 H Urine Ascorbic Acid 40 H Scribe Documentation - Scribe Written by Scribe:: Jaren Collins, 02/13/2017 0511 acting as scribe for :: Joe <NO TELLEZ - Last Filed: 02/13/17 05:04>
[2017-02-13 06:01] LABS: VENOUS BLOOD BASE EXCESS -2.2 mmol/L; VENOUS BLOOD HCO3 24.7 mmol/L (20-32); VENOUS BLOOD PCO2 51.9 mmHg (35-63); VENOUS BLOOD PH 7.3 (7.30-7.42)
[2017-02-13 06:02] LABS: ABSOLUTE MONOCYTES (AUTO) 0.7 10^3/uL (0.1-1.4); ABSOLUTE NEUT (AUTO) 6.2 10^3/uL (1.7-8.2); BASOPHILS % (AUTO) 0.2 % (0-2); EOSINOPHILS % (AUTO) 0.6 % (0-6); HEMATOCRIT 39.3 % (36.0-47.0); HGB HCT DIFFERENCE -0.3; LYMPHOCYTES % (AUTO) 12.6 % (13-45); MEAN CORPUSCULAR HEMOGLOBIN 29.5 pg (27.0-33.4); MEAN CORPUSCULAR VOLUME 90 fl (80-97); MONOCYTES % (AUTO) 8.4 % (3-13); RED BLOOD COUNT 4.39 10^6/uL (3.72-5.28); RED CELL DISTRIBUTION WIDTH 15.9 % (11.5-14.0); SEGMENTED NEUTROPHILS % (AUTO) 78.2 % (42-78); WHITE BLOOD COUNT 7.9 10^3/uL (4.0-10.5)
--- NOTE | 2017-02-13 06:10 | RADIOLOGY REPORT (SQ) ---
EXAM DESCRIPTION: CHEST SINGLE VIEW COMPLETED DATE/TIME: 02/13/2017 5:53 am REASON FOR STUDY: Hypoxia, ams COMPARISON: 12/11/2016. EXAM PARAMETERS: NUMBER OF VIEWS: One view. TECHNIQUE: Single frontal radiographic view of the chest acquired. RADIATION DOSE: NA LIMITATIONS: None. FINDINGS: LUNGS AND PLEURA: Small bandlike scar/atelectasis of the left mid lung field. Moderate le ft lung volume. Mild interstitial markings. Stable. MEDIASTINUM AND HILAR STRUCTURES: No masses. Contour normal. HEART AND VASCULAR STRUCTURES: Moderate enlargement of the cardiac silhouette. BONES: No acute findings. HARDWARE: Lower nuchal clips along the midline. Left cardiac stimulation device and leads. Upper ab dominal clips . OTHER: No other significant finding. IMPRESSION: No acute cardiopulmonary findings. TECHNICAL DOCUMENTATION: JOB ID: [id number] [employer]- All Rights Reserved
[2017-02-13 06:11] LABS: PROTHROMBIN TIME 13.1 SEC (11.4-15.4)
[2017-02-13 06:35] LABS: APPEARANCE,URINE SLIGHTLY-CLOUDY; BILIRUBIN,URINE NEGATIVE (NEGATIVE); GLUCOSE, URINE NEGATIVE (NEGATIVE); KETONES,URINE NEGATIVE (NEGATIVE); LEUKOCYTE ESTERASE,URINE NEGATIVE (NEGATIVE); NITRITE,URINE NEGATIVE (NEGATIVE); PROTEIN,URINE 100 mg/dL (NEGATIVE); UROBILINOGEN,URINE NEGATIVE mg/dL (<2.0)
[2017-02-13] MEDS ORDERED: PIPERACILLIN/TAZOBACTAM 3.375 GM VIAL IV ONE (06:48)
[2017-02-13 07:32] LABS: ALANINE AMINOTRANSFERASE 55 U/L (9-52); ALBUMIN 3.9 g/dL (3.5-5.0); ALKALINE PHOSPHATASE 189 U/L (38-126); ANION GAP 10 (5-19); ASPARTATE AMINO TRANSFERASE 48 U/L (14-36); BILIRUBIN,DIRECT 0.3 mg/dL (0.0-0.4); BILIRUBIN,TOTAL 0.3 mg/dL (0.2-1.3); BLOOD UREA NITROGEN 30 mg/dL (7-20); CALCIUM 9.3 mg/dL (8.4-10.2); CARBON DIOXIDE 26 mmol/L (22-30); CHLORIDE 107 mmol/L (98-107); CREATININE RESULT 0.74 mg/dL (0.52-1.25); GLUCOSE 146 mg/dL (75-110); POTASSIUM 4.2 mmol/L (3.6-5.0); SODIUM 143.3 mmol/L (137-145); TOTAL PROTEIN 9.1 g/dL (6.3-8.2)
--- NOTE | 2017-02-13 08:08 | EKG REPORT ---
SEVERITY:- ABNORMAL ECG - SINUS RHYTHM VS VENTRICULAR PACING : Confirmed by: Dalton Chiu MD 13-Feb-2017 08:08:31
[2017-02-13] MEDS ORDERED: DEXTROSE 40% GEL 15 GM TUBE PO PRN ×2 (10:10)
[2017-02-13] MEDS ORDERED: GLUCAGON,HUMAN RECOMB 1 MG INJ SUBCUT PRN (10:10)
[2017-02-13] MEDS ORDERED: NORMAL SALINE 1000 ML 1,000 ML IV PRN (10:10)
[2017-02-13] MEDS ORDERED: DEXTROSE 50%-WATER 25 GM/50 ML DISP.SYRIN IV PRN ×2 (10:10)
[2017-02-13] MEDS ORDERED: ALBUTEROL SULFATE 0.083% NEB 2.5 MG/3 ML AMPUL NEB PRN (10:18)
[2017-02-13] MEDS ORDERED: BUDESONIDE NEB 0.5 MG/2 ML AMPUL NEB PRN (10:18)
[2017-02-13] MEDS ORDERED: INSULIN LISPRO 100 UNIT/ML 3 ML VIAL SUBCUT PRN (10:18)
--- NOTE | 2017-02-13 10:56 | PDOC H&P ---
History of Present Illness Admission Date/PCP: 02/13/17 09:19 JOSE ALBERTO BOOKER MD Patient complains of: Difficulty breathing, decreased alertness History of Present Illness: KELLEN BEAVERS is a 86 year old female who presented to the emergency department via EMS early this morning with complaints of respiratory distress. HPI is obtained from the patient's daughters. Per her daughter, whom the patient lives with, at approximately 3:00 this morning she went to check on the patient and found her to be minimally responsive which is a departure from her baseline. The patient is capable of making eye contact and recognizes family members faces at a minimum and typically is conversational in response to family members questions. This morning, the patient would not make eye contact or answer questions. The patient was noted to be diaphoretic, her bed sheets were soaked however had not voided, and is making a raspy/gurgling noise with breathing. The daughters report that the patient has had several months of difficulty managing her tube feedings related to gurgling breath sounds noted during feeds. Time the patient occasionally tolerates 150 mL bolus feed but they frequently have to aspirate formula back out due to the patient becoming agitated and coughing. The patient did have one episode of emesis approximately 2 weeks ago but none more recently. Per family members, and she was at her normal state of health when they went to sleep last night. Notably, she was recently treated as an outpatient for a UTI. Workup in the emergency department did not reveal any concerning lab abnormalities. Family members state that her LFTs are chronically elevated and monitored by her PCP. The chest x-ray did not demonstrate evidence of a pneumonia. However, given her HPI, there is significant concern for aspiration pneumonia r/t tube feedings. Shortly upon arrival she was placed on BiPAP with improvement in her respiratory status. Blood cultures were obtained and she was empirically placed on Zosyn for anaerobic coverage. She was referred to the hospitalist service for admission. Past Medical History Cardiac Medical History: Reports: Congestive Heart Failure, Coronary Artery Disease, Hyperlipidema, Hypertension, Other - V-paced Pulmonary Medical History: Reports: Chronic Obstructive Pulmonary Disease (COPD) EENT Medical History: Reports: None Neurological Medical History: Reports: None, Seizures - NO SEIZURE SINCE PACEMAKER 2016 Endocrine Medical History: Reports: Diabetes Mellitus Type 2 Renal/ Medical History: Reports: None Malignancy Medical History: Reports: None GI Medical History: Reports: Gastroesophageal Reflux Disease, Other - Peg tube Musculoskeltal Medical History: Reports: Arthritis Psychiatric Medical History: Reports: Dementia Hematology: Reports: Anemia - HX OF Infectious Medical History: Reports: Clostridium Difficile Past Surgical History Past Surgical History: Reports: Section, Cholecystectomy, Hysterectomy , Orthopedic Surgery - left hip, Pacemaker, Other - Peg tube Social History Information Source: Relative Lives with: Family Smoking Status: Unknown if Ever Smoked Frequency of Alcohol Use: None Hx Recreational Drug Use: No Drugs: None Hx Prescription Drug Abuse: No Family History Family History: Reviewed & Not Pertinent, CVA Parental Family History Reviewed: Yes Children Family History Reviewed: Yes Sibling(s) Family History Reviewed.: Yes Medication/Allergy Home Medications: Acidoph/L.bulg/Bif.b/S.thermop [Bacid Caplet] 1 tab PO Q12 02/13/17 Albuterol Sulfate [Albuterol Sulfate 2.5mg/3 mL] 2.5 mg IH [id number] PRN 02/13/17 Amino Acids/Protein Hydrolys [Pro-Stat Max Liquid] 0 ml PO ASDIR PRN 02/13/17 Amlodipine Besylate [Norvasc 5 mg Tablet] 5 mg PO DAILY 02/13/17 Ascorbic Acid [Vitamin C 500 mg Tablet] 500 mg PO TUTH@1000 02/13/17 Aspirin [Aspirin 325 mg Tablet] 325 mg PO DAILY 02/13/17 Budesonide [Pulmicort Neb 0.5 mg/2 ml Ampul] 0.5 mg NEB [id number] PRN 02/13/17 Fentanyl [Duragesic 12 Mcg/Hr Transdermal Patch] 1 each TD Q3D MDD due for change 02/13/17 02/13/17 Levothyroxine Sodium [Unithroid] 25 mcg PO Q6AM 02/13/17 Metoprolol Tartrate [Lopressor 25 mg Tablet] 25 mg PO Q12 02/13/17 Multivit-Minerals/Ferrous Gluc [Centrum Multivit-Mineral Liq] 9 mg PO DAILY 12/22 Pantoprazole Sodium [Protonix] 40 mg PO DAILY 02/13/17 Topiramate [Topamax 100 Mg Tablet] 100 mg PO Q12 02/13/17 Zinc Acetate [Galzin] 25 mg PO TUTH@1000 02/13/17 Allergies/Adverse Reactions: phenytoin sodium [From Dilantin] Allergy (Verified 07/12/16 14:28) phenytoin sodium extended [From Dilantin] Allergy (Verified 07/12/16 14:28) Review of Systems ROS unobtainable: Due to mental status, Other - Limited ROS 2/2 patient's mental status and medical condision. Physical Exam Vital Signs: Temp Pulse Resp BP Pulse Ox 98.0 F 19 120/69 97 02/13/17 10:00 02/13/17 10:00 02/13/17 09:45 02/13/17 10:00 General appearance: PRESENT: mild distress, morbidly obese, well-developed, well -nourished Head exam: PRESENT: atraumatic, normocephalic Eye exam: PRESENT: conjunctival injection, EOMI, PERRLA. ABSENT: scleral icterus Ear exam: PRESENT: normal external ear exam Mouth exam: PRESENT: moist, tongue midline Teeth exam: PRESENT: edentulous Neck exam: ABSENT: carotid bruit, JVD, lymphadenopathy, thyromegaly Respiratory exam: PRESENT: crackles - bibasilar, decreased breath sounds - throughout, symmetrical. ABSENT: rales, rhonchi, unlabored - Unlabored while on BiPAP, wheezes Cardiovascular exam: PRESENT: RRR, +S1, +S2. ABSENT: diastolic murmur, rubs, systolic murmur Pulses: PRESENT: normal dorsalis pedis pul Vascular exam: PRESENT: normal capillary refill GI/Abdominal exam: PRESENT: normal bowel sounds, soft. ABSENT: distended, guarding, mass, organolmegaly, rebound, tenderness Rectal exam: PRESENT: deferred Gentrourinary exam: PRESENT: indwelling catheter Extremities exam: PRESENT: full ROM. ABSENT: calf tenderness, clubbing, pedal edema Neurological exam: PRESENT: other - Arousable; briefly makes eye contact. Does not follow commands.. ABSENT: motor sensory deficit Psychiatric exam: ABSENT: homicidal ideation, suicidal ideation Skin exam: PRESENT: dry, warm. ABSENT: cyanosis, intact - sacral wound; polymem dressing place, rash Results Impressions: Chest X-Ray 02/13/17 05:05 IMPRESSION: No acute cardiopulmonary findings. Assessment & Plan - Diagnosis (1) Respiratory distress Is this a current diagnosis for this admission?: Yes Plan: Respiratory distress secondary to resume aspiration pneumonia. Currently stable on BiPAP. 1-BiPAP as needed 2- Supplemental oxygen to keep O2 sats greater than 88% 3- Albuterol nebs as needed (2) Aspiration pneumonia Qualifiers: Aspiration pneumonia type: unspecified Laterality: unspecified laterality Lung location: unspecified part of lung Qualified Code(s): J69.0 - Pneumonitis due to inhalation of food and vomit Plan: Patient presented with acute respiratory distress and HPI strongly indicative of aspiration pneumonia related to PEG tube feedings with reflux. She will be admitted to [facility] on BiPAP. 1- n.p.o. except for meds 2- IVF for hydration 3- Empiric coverage with Zosyn; blood cultures pending (3) Diabetes Qualifiers: Diabetes mellitus type: other specified (including ARELI) Diabetes mellitus complication status: without complication Diabetes mellitus custodial insulin use: unspecified custodial insulin use status Qualified Code(s): E13.9 - Other specified diabetes mellitus without complications Is this a current diagnosis for this admission?: Yes Plan: Not currently on any home medication; diet controlled with PEG tube formula feedings. Patient is currently n.p.o. secondary to aspiration pneumonia. 8-Okno-Zgani every 6 with sliding scale insulin for coverage 2-Will ask registered dietitian to make recommendations with regard to morbid obesity, diabetes, history of heart failure, with chronic pressure wound requiring continuous PEG tube feedings once enteral nutrition is resumed (4) Sacral wound Qualifiers: Encounter type: initial encounter Qualified Code(s): S31.000A - Unspecified open wound of lower back and pelvis without penetration into retroperitoneum, initial encounter Is this a current diagnosis for this admission?: Yes Plan: Sacral wound; POA. 1- We will ask registered dietitian to evaluate nutritional needs 2- Wound care per nursing protocols 3- Turn q2 hr (5) HTN (hypertension) Qualifiers: Hypertension type: essential hypertension Qualified Code(s): I10 - Essential (primary) hypertension Is this a current diagnosis for this admission?: Yes Plan: Continue home medications; amlodipine and metoprolol. (6) Morbid obesity Plan: As above. (7) DNR (do not resuscitate) Is this a current diagnosis for this admission?: Yes Plan: Patient's CODE STATUS was discussed with her daughters, Frieda and Renetta. They are both in agreement that the patient be a DNR/DNI. They report that she is established with [facility] and plan hospice bridge in the future. At this time they do request medical management to include IV antibiotics and continued PEG tube feedings and declined receding towards hospice/comfort care measures at this time. DNR/DNI (8) History of CVA with residual deficit Is this a current diagnosis for this admission?: Yes Plan: Patient with history of CVA 2012; she has been bedbound and has required PEG tube feedings since that time. - Time Time Spent: 50 to 70 Minutes Medications reviewed and adjusted accordingly: Yes - Inpatient Certification Based on my medical assessment, after consideration of the patient's comorbidities, presenting symptoms, or acuity I expect that the services needed warrant INPATIENT care.: Yes I certify that my determination is in accordance with my understanding of Medicare's requirements for reasonable and necessary INPATIENT services [42 CFR 412.3e].: Yes Medical Necessity: Need Close Monitoring Due to Risk of Patient Decompensation, Need for IV Antibiotics
[2017-02-13] MEDS ORDERED: FENTANYL 12 MCG/HR PATCH.TD72 TD ONE (11:00)
[2017-02-13] MEDS ORDERED: METOPROLOL TARTRATE 25 MG TABLET PO ONE (11:00)
[2017-02-13] MEDS ORDERED: PANTOPRAZOLE SODIUM 40 MG VIAL IV ONE (11:00)
[2017-02-13] MEDS ORDERED: TOPIRAMATE 100 MG TABLET PO ONE (11:30)
[2017-02-13] MEDS: PIPERACILLIN SODIUM/TAZOBACTAM 3.375 GM in NORMAL SALINE 100 ML IV SCH ×2 (12:25→16:55)
[2017-02-13] MEDS ORDERED: METOPROLOL TARTRATE 25 MG TABLET PO SCH (22:00)
[2017-02-13] MEDS ORDERED: TOPIRAMATE 100 MG TABLET PO SCH (22:00)
[2017-02-13] MEDS: METOPROLOL TARTRATE 25 MG TABLET PEG SCH (22:30)
[2017-02-13] MEDS: TOPIRAMATE 100 MG TABLET PEG SCH (22:30)
[2017-02-14] MEDS: PIPERACILLIN SODIUM/TAZOBACTAM 3.375 GM in NORMAL SALINE 100 ML IV SCH ×4 (01:01→18:01)
[2017-02-14] MEDS ORDERED: LEVOTHYROXINE SODIUM 0.025 MG TABLET PO SCH (06:00)
[2017-02-14] MEDS: LEVOTHYROXINE SODIUM 0.025 MG TABLET PEG SCH (06:14)
[2017-02-14 06:50] LABS: ANION GAP 9 (5-19); BLOOD UREA NITROGEN 27 mg/dL (7-20); CALCIUM 8.1 mg/dL (8.4-10.2); CARBON DIOXIDE 21 mmol/L (22-30); CHLORIDE 113 mmol/L (98-107); CREATININE RESULT 0.67 mg/dL (0.52-1.25); GLUCOSE 113 mg/dL (75-110); POTASSIUM 3.5 mmol/L (3.6-5.0); SODIUM 143.4 mmol/L (137-145)
[2017-02-14 06:55] LABS: ABSOLUTE LYMPHOCYTES (AUTO) 2.2 10^3/uL (0.5-4.7); ABSOLUTE MONOCYTES (AUTO) 1.3 10^3/uL (0.1-1.4); ABSOLUTE NEUT (AUTO) 5.2 10^3/uL (1.7-8.2); BASOPHILS % (AUTO) 0.5 % (0-2); EOSINOPHILS % (AUTO) 0.5 % (0-6); HEMATOCRIT 31.6 % (36.0-47.0); HGB HCT DIFFERENCE -0.4; LYMPHOCYTES % (AUTO) 24.9 % (13-45); MEAN CORPUSCULAR HEMOGLOBIN 29.4 pg (27.0-33.4); MEAN CORPUSCULAR VOLUME 89 fl (80-97); MONOCYTES % (AUTO) 14.4 % (3-13); RED BLOOD COUNT 3.55 10^6/uL (3.72-5.28); RED CELL DISTRIBUTION WIDTH 15.3 % (11.5-14.0); SEGMENTED NEUTROPHILS % (AUTO) 59.7 % (42-78); WHITE BLOOD COUNT 8.7 10^3/uL (4.0-10.5)
[2017-02-14 07:08] LABS: HEMOGLOBIN 10.4 g/dL (12.0-15.5)
[2017-02-14] MEDS ORDERED: AMLODIPINE BESYLATE 5 MG TABLET PO SCH (10:00)
[2017-02-14] MEDS ORDERED: ASPIRIN 325 MG TABLET PO SCH (10:00)
[2017-02-14] MEDS: ASPIRIN 325 MG TABLET PEG SCH (10:13)
[2017-02-14] MEDS: TOPIRAMATE 100 MG TABLET PEG SCH ×2 (10:13→22:36)
[2017-02-14] MEDS: AMLODIPINE BESYLATE 5 MG TABLET PEG SCH (10:13)
[2017-02-14] MEDS: ENOXAPARIN SODIUM INJ 40 MG/0.4 ML DISP.SYRIN SUBCUT SCH (10:13)
[2017-02-14] MEDS: PANTOPRAZOLE SODIUM 40 MG VIAL IV SCH (10:13)
[2017-02-14] MEDS: METOPROLOL TARTRATE 25 MG TABLET PEG SCH ×2 (10:13→22:36)
[2017-02-14] MEDS ORDERED: FUROSEMIDE INJ/PF 40 MG/4 ML SDV IV ONE (14:40)
[2017-02-14 15:26] LABS: ARTERIAL BLOOD BASE EXCESS -5.6 mmol/L; ARTERIAL BLOOD O2 SATURATION 99.4 % (94-98)
[2017-02-14 15:43] LABS: ANION GAP 10 (5-19); BLOOD UREA NITROGEN 22 mg/dL (7-20); CALCIUM 8.1 mg/dL (8.4-10.2); CARBON DIOXIDE 22 mmol/L (22-30); CHLORIDE 114 mmol/L (98-107); CREATININE RESULT 0.59 mg/dL (0.52-1.25); GLUCOSE 167 mg/dL (75-110); POTASSIUM 3.8 mmol/L (3.6-5.0); SODIUM 146.4 mmol/L (137-145)
--- NOTE | 2017-02-14 15:52 | RADIOLOGY REPORT (SQ) ---
EXAM DESCRIPTION: CHEST SINGLE VIEW COMPLETED DATE/TIME: 02/14/2017 3:33 pm REASON FOR STUDY: hypoxia COMPARISON: 11/19/2016 EXAM PARAMETERS: NUMBER OF VIEWS: One view. TECHNIQUE: Single frontal radiographic view of the chest acquired. RADIATION DOSE: NA LIMITATIONS: None. FINDINGS: LUNGS AND PLEURA: Mild linear atelectasis in the left lung. No acute infiltrate or pleura l effusion. MEDIASTINUM AND HILAR STRUCTURES: No masses. Contour normal. HEART AND VASCULAR STRUCTURES: Heart size is borderline. No failure. BONES: No acute findings. HARDWARE: None in the chest. OTHER: No other significant finding. IMPRESSION: Borderline cardiomegaly with no failure. TECHNICAL DOCUMENTATION: JOB ID: [id number] [employer]- All Rights Reserved
--- NOTE | 2017-02-14 16:37 | PDOC PROGRESS REPORT ---
Subjective Progress Note for:: 02/14/17 Subjective:: The patient is seen and examined today. I initially saw her this morning and she was stable on BiPAP. This afternoon I was called to her room and then she had become acutely hypoxic. I had a long discussion with the family members present at the bedside. They were updated on the patient's condition and they are aware that her prognosis is quite guarded. All of their questions were answered. A review of systems could not be obtained from the patient today. Physical Exam Vital Signs: Temp Pulse Resp BP Pulse Ox 97.8 F 72 12 147/73 H 100 02/14/17 15:19 02/14/17 15:19 02/14/17 15:19 02/14/17 15:19 02/14/17 11:33 Intake & Output 02/13/17 02/14/17 02/15/17 06:59 06:59 06:59 Intake Total 2400 Output Total 500 300 Balance 1900 -300 Weight 74.843 kg General appearance: PRESENT: no acute distress, obese, other - Patient is on BiPAP Head exam: PRESENT: atraumatic, normocephalic Mouth exam: PRESENT: moist Respiratory exam: PRESENT: crackles Cardiovascular exam: PRESENT: bradycardia. ABSENT: diastolic murmur, rubs, systolic murmur GI/Abdominal exam: PRESENT: normal bowel sounds, soft. ABSENT: distended, guarding, mass, organolmegaly, rebound, tenderness Rectal exam: PRESENT: deferred Extremities exam: PRESENT: full ROM. ABSENT: calf tenderness, clubbing, pedal edema Neurological exam: PRESENT: awake Psychiatric exam: PRESENT: appropriate affect, normal mood. ABSENT: homicidal ideation, suicidal ideation Skin exam: PRESENT: dry, intact, warm. ABSENT: cyanosis, rash Results Laboratory Results: 02/14/17 05:32 02/14/17 15:16 02/14/17 02/14/17 02/14/17 05:32 05:32 14:55 WBC 8.7 RBC 3.55 L Hgb 10.4 L D Hct 31.6 L MCV 89 MCH 29.4 MCHC 33.0 RDW 15.3 H Plt Count 208 Seg Neutrophils % 59.7 Lymphocytes % 24.9 Monocytes % 14.4 H Eosinophils % 0.5 Basophils % 0.5 Absolute Neutrophils 5.2 Absolute Lymphocytes 2.2 Absolute Monocytes 1.3 Absolute Eosinophils 0.0 Absolute Basophils 0.0 Carbonic Acid 1.51 H HCO3/H2CO3 Ratio 14:1 ABG pH 7.25 L ABG pCO2 50.2 H ABG pO2 231.6 H ABG HCO3 21.7 ABG O2 Saturation 99.4 H ABG Base Excess -5.6 FiO2 70% Sodium 143.4 Potassium 3.5 L Chloride 113 H Carbon Dioxide 21 L Anion Gap 9 BUN 27 H Creatinine 0.67 Est GFR ( Amer) > 60 Est GFR (Non-Af Amer) > 60 Glucose 113 H Calcium 8.1 L 02/14/17 15:16 WBC RBC Hgb Hct MCV MCH MCHC RDW Plt Count Seg Neutrophils % Lymphocytes % Monocytes % Eosinophils % Basophils % Absolute Neutrophils Absolute Lymphocytes Absolute Monocytes Absolute Eosinophils Absolute Basophils Carbonic Acid HCO3/H2CO3 Ratio ABG pH ABG pCO2 ABG pO2 ABG HCO3 ABG O2 Saturation ABG Base Excess FiO2 Sodium 146.4 H Potassium 3.8 Chloride 114 H Carbon Dioxide 22 Anion Gap 10 BUN 22 H Creatinine 0.59 Est GFR ( Amer) > 60 Est GFR (Non-Af Amer) > 60 Glucose 167 H Calcium 8.1 L 02/14/17 15:16 NT-Pro-B Natriuret Pep 368 Impressions: Chest X-Ray 02/14/17 00:00 IMPRESSION: Borderline cardiomegaly with no failure. Assessment & Plan - Diagnosis (1) Acute respiratory failure with hypoxia and hypercapnia Plan: The patient had an episode this afternoon where her oxygen saturations dropped to 70% while on BiPAP. The respiratory therapy has been working with her and currently her oxygen saturations are stable. She is on a continuous pulse ox monitor for now. She did receive 1 dose of IV Lasix and will continue parenteral antibiotics. BNP was negative and chest x-ray was unrevealing. At this point it appears that her respiratory failure is likely due to her aspiration pneumonia. (2) Aspiration pneumonia Qualifiers: Aspiration pneumonia type: unspecified Laterality: unspecified laterality Lung location: unspecified part of lung Qualified Code(s): J69.0 - Pneumonitis due to inhalation of food and vomit Plan: Concerns for gram negatives and anaerobes. She will continue IV Zosyn. This is day #2 of treatment. (3) Sacral decubitus ulcer, stage III Plan: We will see new local wound care. Family is bringing with they have been using at home as the wound has made some improvement recently. (4) Morbid obesity Plan: For now her tube feedings have been stopped. (5) Diabetes Qualifiers: Diabetes mellitus type: other specified (including ARELI) Diabetes mellitus complication status: without complication Diabetes mellitus shelter insulin use: unspecified shelter insulin use status Qualified Code(s): E13.9 - Other specified diabetes mellitus without complications Is this a current diagnosis for this admission?: Yes Plan: Continue sliding scale coverage. (6) HTN (hypertension) Qualifiers: Hypertension type: essential hypertension Qualified Code(s): I10 - Essential (primary) hypertension Is this a current diagnosis for this admission?: Yes Plan: Stable for now. (7) History of CVA with residual deficit Is this a current diagnosis for this admission?: Yes Plan: She is bedbound at baseline with the PEG tube. Only wants no aggressive intervention but wanted us to do what we can with IV antibiotics and fluids. They confirmed her DNR status today. (8) Hypokalemia Plan: Repleted (9) Metabolic acidosis Plan: Resolved (10) Elevated liver function tests Plan: Of undetermined significance at this point. Will recheck level in the morning. (11) DNR (do not resuscitate) Is this a current diagnosis for this admission?: Yes - Time Time Spent with patient: 35 or more minutes - Inpatient Certification Medical Necessity: Need for IV Antibiotics, Other - Inpatient hospitalization remains necessary. The patient has aspiration pneumonia requiring parenteral antibiotics. Currently she is being maintained on BiPAP support. Her prognosis is guarded. Timing of disposition will be determined by her clinical course.
--- NOTE | 2017-02-14 18:34 | EKG REPORT ---
SEVERITY:- ABNORMAL ECG - ATRIAL-SENSED VENTRICULAR-PACED COMPLEXES PROBABLE LEFT ATRIAL ABNORMALITY IVCD, CONSIDER ATYPICAL RBBB LEFT VENTRICULAR HYPERTROPHY : Confirmed by: Dalton Chiu MD 14-Feb-2017 18:33:11
[2017-02-15] MEDS: PIPERACILLIN SODIUM/TAZOBACTAM 3.375 GM in NORMAL SALINE 100 ML IV SCH ×4 (00:47→17:31)
[2017-02-15] MEDS: LEVOTHYROXINE SODIUM 0.025 MG TABLET PEG SCH (06:19)
--- NOTE | 2017-02-15 09:25 | PDOC PROGRESS REPORT ---
Subjective Progress Note for:: 02/15/17 Subjective:: The patient is much more alert this morning than she was yesterday. Family members are present at the bedside. It is still difficult to get a review of systems however she is trying to speak. She is able to tell me that her left leg is hurting her. She is able to tell me that she feels bad. Otherwise review of systems could not be obtained. For now the patient remains on BiPAP although her oxygen is being decreased. Hopefully we can get her weaned off over the course of the day. I did discuss the plan of care with family members at the bedside and all of their questions were answered. Physical Exam Vital Signs: Temp Pulse Resp BP Pulse Ox 98.3 F 80 18 162/75 H 100 02/15/17 08:00 02/15/17 08:00 02/15/17 08:12 02/15/17 08:00 02/15/17 08:12 Pulse Oximeter Continuous Start: 02/14/17 14: 59 Freq: RTQ4 Status: Active Document 02/15/17 08:12 TPO (Rec: 02/15/17 08:13 TPO [email or web address]) Pulse Oximetry Assessment Oxygen Saturation (92-100) 100 Oxygen Delivery Method Bi-pap Fraction of Inspired Oxygen (FIO2) 100 Equipment Usage Equipment in Use Continuous SpO2 Machine # [id number] Intake & Output 02/14/17 02/15/17 02/16/17 06:59 06:59 06:59 Intake Total 2400 1373 Output Total 500 2250 Balance 1900 -877 Weight 74.843 kg 84.4 kg General appearance: PRESENT: no acute distress, obese, well-nourished, other - She has a BiPAP on Head exam: PRESENT: atraumatic, normocephalic Mouth exam: PRESENT: moist, tongue midline Respiratory exam: PRESENT: rhonchi - She is she has some scattered coarse rhonchi anteriorly. Poor effort. ABSENT: rales, wheezes Cardiovascular exam: PRESENT: RRR. ABSENT: diastolic murmur, rubs, systolic murmur GI/Abdominal exam: PRESENT: normal bowel sounds, soft. ABSENT: distended, guarding, mass, organolmegaly, rebound, tenderness Rectal exam: PRESENT: deferred Extremities exam: PRESENT: tenderness - The patient is tender over the left calf and in the popliteal area of the left knee. Musculoskeletal exam: ABSENT: ambulatory Neurological exam: PRESENT: alert, awake. ABSENT: altered Psychiatric exam: PRESENT: appropriate affect, normal mood. ABSENT: homicidal ideation, suicidal ideation Skin exam: PRESENT: dry, intact, warm, other - Patient has a stage III sacral decubitus ulcer. There is no surrounding erythema or evidence of infection.. ABSENT: cyanosis, rash Results Laboratory Results: 02/14/17 05:32 02/14/17 15:16 02/14/17 02/14/17 14:55 15:16 Carbonic Acid 1.51 H HCO3/H2CO3 Ratio 14:1 ABG pH 7.25 L ABG pCO2 50.2 H ABG pO2 231.6 H ABG HCO3 21.7 ABG O2 Saturation 99.4 H ABG Base Excess -5.6 FiO2 70% Sodium 146.4 H Potassium 3.8 Chloride 114 H Carbon Dioxide 22 Anion Gap 10 BUN 22 H Creatinine 0.59 Est GFR ( Amer) > 60 Est GFR (Non-Af Amer) > 60 Glucose 167 H Calcium 8.1 L 02/14/17 15:16 NT-Pro-B Natriuret Pep 368 Impressions: Chest X-Ray 02/14/17 00:00 IMPRESSION: Borderline cardiomegaly with no failure. Assessment & Plan - Diagnosis (1) Acute respiratory failure with hypoxia and hypercapnia Plan: The patient remains on BiPAP support. Her respiratory failure is likely due to aspiration pneumonia. The patient's family had been performing tube feeds at home and boluses. I believe she is going to need continuous feeds going forward. Going to consult the clinical dietitian to restart tube feedings at a very low rate and we will watch her quite closely for residuals. Respiratory therapy will hopefully be able to wean her off of the BiPAP as the day goes forward. Overall she looks a little better than she did yesterday. (2) Aspiration pneumonia Qualifiers: Aspiration pneumonia type: unspecified Laterality: unspecified laterality Lung location: unspecified part of lung Qualified Code(s): J69.0 - Pneumonitis due to inhalation of food and vomit Plan: Concerns for gram negatives and anaerobes. She will continue IV Zosyn. This is day #3 of treatment. (3) Sacral decubitus ulcer, stage III Plan: We will continue local wound care. Family is bringing with they have been using at home as the wound has made some improvement recently. (4) Morbid obesity Plan: Her tube feedings were stopped yesterday. We will reinitiate today at a very low rate. 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 (6) HTN (hypertension) Qualifiers: Hypertension type: essential hypertension Qualified Code(s): I10 - Essential (primary) hypertension Is this a current diagnosis for this admission?: Yes Plan: Stable for now. (7) History of CVA with residual deficit Is this a current diagnosis for this admission?: Yes Plan: She is bedbound at baseline with the PEG tube. Family wants no aggressive intervention but wanted us to do what we can with IV antibiotics and fluids. They confirmed her DNR status yesterday. We are going to try to restart her tube feeds today at a very low continuous rate. (8) Hypokalemia Plan: Repleted (9) Metabolic acidosis Plan: Resolved (10) Elevated liver function tests Plan: Of undetermined significance at this point. Will recheck level in the morning. (11) DNR (do not resuscitate) Is this a current diagnosis for this admission?: Yes - Time Time Spent with patient: 25-34 minutes - Inpatient Certification Medical Necessity: Need for IV Antibiotics - Inpatient hospitalization remains necessary. The patient remains on BiPAP. Her prognosis remains guarded. She is requiring parenteral therapies. We need to restart her tube feedings and see if she can tolerate this. Timing of disposition will be determined by her clinical course
[2017-02-15] MEDS: METOPROLOL TARTRATE 25 MG TABLET PEG SCH ×2 (09:26→21:32)
[2017-02-15] MEDS: ENOXAPARIN SODIUM INJ 40 MG/0.4 ML DISP.SYRIN SUBCUT SCH (09:28)
[2017-02-15] MEDS: ASPIRIN 325 MG TABLET PEG SCH (09:28)
[2017-02-15] MEDS: PANTOPRAZOLE SODIUM 40 MG VIAL IV SCH (09:28)
[2017-02-15] MEDS: AMLODIPINE BESYLATE 5 MG TABLET PEG SCH (09:28)
[2017-02-15] MEDS: TOPIRAMATE 100 MG TABLET PEG SCH ×2 (09:28→21:32)
[2017-02-15 09:45] LABS: ABSOLUTE BASOPHILS # (AUTO) 0.1 10^3/uL (0.0-0.2); ABSOLUTE LYMPHOCYTES (AUTO) 1.6 10^3/uL (0.5-4.7); ABSOLUTE MONOCYTES (AUTO) 0.8 10^3/uL (0.1-1.4); ABSOLUTE NEUT (AUTO) 7.1 10^3/uL (1.7-8.2); BASOPHILS % (AUTO) 0.8 % (0-2); EOSINOPHILS % (AUTO) 0.4 % (0-6); HEMATOCRIT 36.8 % (36.0-47.0); HEMOGLOBIN 12.2 g/dL (12.0-15.5); HGB HCT DIFFERENCE -0.2; LYMPHOCYTES % (AUTO) 16.9 % (13-45); MEAN CORPUSCULAR HEMOGLOBIN 29.8 pg (27.0-33.4); MEAN CORPUSCULAR HGB CONC 33.2 g/dL (32.0-36.0); MEAN CORPUSCULAR VOLUME 90 fl (80-97); MONOCYTES % (AUTO) 8.5 % (3-13); RED BLOOD COUNT 4.11 10^6/uL (3.72-5.28); RED CELL DISTRIBUTION WIDTH 15.2 % (11.5-14.0); SEGMENTED NEUTROPHILS % (AUTO) 73.4 % (42-78); WHITE BLOOD COUNT 9.7 10^3/uL (4.0-10.5)
[2017-02-15 09:56] LABS: ANION GAP 14 (5-19); BLOOD UREA NITROGEN 19 mg/dL (7-20); CALCIUM 8.7 mg/dL (8.4-10.2); CARBON DIOXIDE 23 mmol/L (22-30); CHLORIDE 110 mmol/L (98-107); CREATININE RESULT 0.61 mg/dL (0.52-1.25); GLUCOSE 118 mg/dL (75-110); MAGNESIUM 1.7 mg/dL (1.6-2.3); POTASSIUM 3.3 mmol/L (3.6-5.0); SODIUM 146.5 mmol/L (137-145)
[2017-02-15 09:57] LABS: ALANINE AMINOTRANSFERASE 63 U/L (9-52); ALBUMIN 3.8 g/dL (3.5-5.0); ALKALINE PHOSPHATASE 187 U/L (38-126); ASPARTATE AMINO TRANSFERASE 36 U/L (14-36); BILIRUBIN,DIRECT 0.5 mg/dL (0.0-0.4); BILIRUBIN,TOTAL 0.9 mg/dL (0.2-1.3); PHOSPHORUS 2.9 mg/dL (2.5-4.5); TOTAL PROTEIN 8.7 g/dL (6.3-8.2)
[2017-02-15] MEDS ORDERED: HYDRALAZINE HCL INJ/PF 20 MG/1 ML SDV IV PRN (17:02)
[2017-02-16] MEDS: PIPERACILLIN SODIUM/TAZOBACTAM 3.375 GM in NORMAL SALINE 100 ML IV SCH ×5 (01:06→23:48)
[2017-02-16 04:41] LABS: ABSOLUTE BASOPHILS # (AUTO) 0.1 10^3/uL (0.0-0.2); ABSOLUTE EOSINOPHILS # (AUTO) 0.1 10^3/uL (0.0-0.6); ABSOLUTE LYMPHOCYTES (AUTO) 1.5 10^3/uL (0.5-4.7); ABSOLUTE MONOCYTES (AUTO) 0.9 10^3/uL (0.1-1.4); BASOPHILS % (AUTO) 0.6 % (0-2); EOSINOPHILS % (AUTO) 0.7 % (0-6); HEMATOCRIT 38.6 % (36.0-47.0); HEMOGLOBIN 12.5 g/dL (12.0-15.5); HGB HCT DIFFERENCE -1.1; LYMPHOCYTES % (AUTO) 17.8 % (13-45); MEAN CORPUSCULAR HGB CONC 32.3 g/dL (32.0-36.0); MEAN CORPUSCULAR VOLUME 90 fl (80-97); MONOCYTES % (AUTO) 10.9 % (3-13); WHITE BLOOD COUNT 8.6 10^3/uL (4.0-10.5)
[2017-02-16 05:24] LABS: ANION GAP 13 (5-19); BLOOD UREA NITROGEN 19 mg/dL (7-20); CARBON DIOXIDE 23 mmol/L (22-30); CHLORIDE 110 mmol/L (98-107); CREATININE RESULT 0.62 mg/dL (0.52-1.25); GLUCOSE 116 mg/dL (75-110); MAGNESIUM 1.7 mg/dL (1.6-2.3); POTASSIUM 3.3 mmol/L (3.6-5.0)
[2017-02-16] MEDS: LEVOTHYROXINE SODIUM 0.025 MG TABLET PEG SCH (06:10)
--- NOTE | 2017-02-16 09:34 | RADIOLOGY REPORT (SQ) ---
EXAM DESCRIPTION: CHEST SINGLE VIEW COMPLETED DATE/TIME: 02/16/2017 9:11 am REASON FOR STUDY: sob COMPARISON: 02/14/2017 NUMBER OF VIEWS: One view. TECHNIQUE: Single frontal radiographic view of the chest acquired. LIMITATIONS: Body habitus. Portable technique. FINDINGS: LUNGS AND PLEURA: No opacities, masses or pneumothorax. No pleural effusion. MEDIASTINUM AND HILAR STRUCTURES: Stable. HEART AND VASCULAR STRUCTURES: Stable cardiomegaly. BONES: No acute findings. HARDWARE: Pacemaker. OTHER: No other significant finding. IMPRESSION: No acute findings in the chest. TECHNICAL DOCUMENTATION: JOB ID: [id number] [employer]- All Rights Reserved
[2017-02-16] MEDS: FENTANYL 12 MCG/HR PATCH.TD72 TD SCH (10:20)
[2017-02-16] MEDS: ASPIRIN 325 MG TABLET PEG SCH (10:20)
[2017-02-16] MEDS: METOPROLOL TARTRATE 25 MG TABLET PEG SCH ×2 (10:20→23:04)
[2017-02-16] MEDS: ENOXAPARIN SODIUM INJ 40 MG/0.4 ML DISP.SYRIN SUBCUT SCH (10:20)
[2017-02-16] MEDS: PANTOPRAZOLE SODIUM 40 MG VIAL IV SCH (10:20)
[2017-02-16] MEDS: AMLODIPINE BESYLATE 5 MG TABLET PEG SCH (10:20)
[2017-02-16] MEDS: TOPIRAMATE 100 MG TABLET PEG SCH ×2 (10:21→23:04)
--- NOTE | 2017-02-16 11:29 | RADIOLOGY REPORT (SQ) ---
EXAM DESCRIPTION: VENOUS BILATERAL LOWER COMPLETED DATE/TIME: 02/16/2017 11:16 am REASON FOR STUDY: rule out dvt, pt hypoxic with leg pain COMPARISON: None. TECHNIQUE: Dynamic and static hewitt scale and color images acquired of both lower extremity venous sy stems. Selected spectral images acquired with additional compression and augmentation maneuvers. Imag es stored on PACS. LIMITATIONS: None. FINDINGS: RIGHT LEG COMMON FEMORAL AND FEMORAL: Normal phasicity, compression and augmentation. No visualized echogenic m aterial on hewitt scale. No defects on color images. POPLITEAL: Normal compression and augmentation. No visualized echogenic material on hewitt scale. No de fects on color images. CALF VESSELS: Normal compression and augmentation. No visualized echogenic material on hewitt scale. No defects on color image. GSV AND SSV: Normal compression. No visualized echogenic material on hewitt scale. No defects on color images. ANY DEEP VENOUS INSUFFICIENCY: Not evaluated. ANY EVIDENCE OF POPLITEAL CYST: No. OTHER: No other significant finding. LEFT LEG COMMON FEMORAL AND FEMORAL: Normal phasicity, compression and augmentation. No visualized echogenic m aterial on hewitt scale. No defects on color images. POPLITEAL: Normal compression and augmentation. No visualized echogenic material on hewitt scale. No de fects on color images. CALF VESSELS: Normal compression and augmentation. No visualized echogenic material on hewitt scale. No defects on color images. GSV AND SSV: Normal compression. No visualized echogenic material on hewitt scale. No defects on color images. ANY DEEP VENOUS INSUFFICIENCY: Not evaluated. ANY EVIDENCE POPLITEAL CYST: No. OTHER: No other significant finding. IMPRESSION: NO EVIDENCE DVT OR SVT IN EITHER LEG. TECHNICAL DOCUMENTATION: JOB ID: [id number] [employer]- All Rights Reserved
[2017-02-16] MEDS ORDERED: FUROSEMIDE INJ/PF 20 MG/2 ML SDV IV ONE (13:07)
[2017-02-16] MEDS ORDERED: POTASSIUM CHLORIDE 20 MEQ/15 ML UDCUP PEG ONE (14:28)
--- NOTE | 2017-02-16 14:31 | PDOC PROGRESS REPORT ---
Subjective Progress Note for:: 02/16/17 Subjective:: The patient is an 86-year-old -[place] female who is bedbound secondary to an acute CVA several years ago. She has a PEG tube in place and has been receiving bolus tube feedings at home. She is capable at baseline of making eye contact and can respond to family members questions. The patient was brought to the emergency room after developing worsening mental status and having some gurgling noted during her feeds. In the emergency room her respiratory status worsened and she was placed on BiPAP. Chest x-ray was not concerning for pneumonia. She was started on IV Zosyn as it was suspected that she had an early aspiration pneumonia. Initially the patient was quite slow to improve. Blood cultures and urine cultures have remained negative to date. She has made a slow but steady improvement over the past couple of days and last night was able to be weaned off of her BiPAP. Currently her oxygen saturations are stable on 3 L of oxygen. Today when I saw the patient she is awake. She is more alert than she has been during this entire hospitalization and is interacting with her family. A good review of systems could not be obtained. She was started back on her tube feedings yesterday. She will likely require continuous feedings at the time of discharge. I have consulted the clinical dietitian to help us decide on her goal rate. Currently she is tolerating 10 mL 's an hour which we will increase over the next 24 hours. Physical Exam Vital Signs: Temp Pulse Resp BP Pulse Ox 97.9 F 70 15 153/66 H 100 02/16/17 12:04 02/16/17 12:04 02/16/17 12:04 02/16/17 12:04 02/16/17 13:08 Pulse Oximeter Continuous Start: 02/14/17 14: 59 Freq: RTQ4 Status: Active Document 02/16/17 13:08 TPO (Rec: 02/16/17 13:08 TPO [email or web address]) Pulse Oximetry Assessment Oxygen Saturation (92-100) 100 Oxygen Flow Rate (L/min) 3 Oxygen Delivery Method Nasal Cannula Fraction of Inspired Oxygen (FIO2) 32 Equipment Usage Equipment in Use Continuous SpO2 Machine # N-2 Intake & Output 02/15/17 02/16/17 02/17/17 06:59 06:59 06:59 Intake Total 1373 737 Output Total 2250 500 Balance -877 237 Weight 84.4 kg 90.3 kg General appearance: PRESENT: no acute distress, obese, well-developed, well- nourished, other - She is receiving oxygen via nasal cannula Head exam: PRESENT: atraumatic, normocephalic Eye exam: PRESENT: conjunctiva pink, EOMI, PERRLA. ABSENT: scleral icterus Mouth exam: PRESENT: moist, tongue midline Respiratory exam: PRESENT: clear to auscultation geraldine. ABSENT: rales, rhonchi, wheezes Cardiovascular exam: PRESENT: RRR. ABSENT: diastolic murmur, rubs, systolic murmur GI/Abdominal exam: PRESENT: normal bowel sounds, soft. ABSENT: distended, guarding, mass, organolmegaly, rebound, tenderness Rectal exam: PRESENT: deferred Extremities exam: PRESENT: full ROM. ABSENT: calf tenderness, clubbing, pedal edema Musculoskeletal exam: ABSENT: ambulatory Neurological exam: PRESENT: alert, awake Psychiatric exam: PRESENT: appropriate affect, normal mood. ABSENT: homicidal ideation, suicidal ideation Skin exam: PRESENT: dry, intact, warm. ABSENT: cyanosis, rash Results Laboratory Results: 02/16/17 04:25 02/16/17 04:25 02/16/17 02/16/17 04:25 04:25 WBC 8.6 RBC 4.30 Hgb 12.5 Hct 38.6 MCV 90 MCH 29.0 MCHC 32.3 RDW 15.0 H Plt Count 221 Seg Neutrophils % 70.0 Lymphocytes % 17.8 Monocytes % 10.9 Eosinophils % 0.7 Basophils % 0.6 Absolute Neutrophils 6.0 Absolute Lymphocytes 1.5 Absolute Monocytes 0.9 Absolute Eosinophils 0.1 Absolute Basophils 0.1 Sodium 146.0 H Potassium 3.3 L Chloride 110 H Carbon Dioxide 23 Anion Gap 13 BUN 19 Creatinine 0.62 Est GFR ( Amer) > 60 Est GFR (Non-Af Amer) > 60 Glucose 116 H Calcium 9.0 Magnesium 1.7 02/14/17 02/15/17 02/16/17 15:16 09:20 04:25 NT-Pro-B Natriuret Pep 368 1170 H 1640 H Impressions: Chest X-Ray 02/16/17 00:00 IMPRESSION: No acute findings in the chest. Venous Doppler Study 02/16/17 00:00 IMPRESSION: NO EVIDENCE DVT OR SVT IN EITHER LEG. Assessment & Plan - Diagnosis (1) Acute respiratory failure with hypoxia and hypercapnia Plan: Likely secondary to aspiration pneumonia although I cannot rule out an element of congestive heart failure in light of her elevated BNP. She has been successfully weaned off of her BiPAP. Currently on 3 L of oxygen. The patient is improving. (2) Aspiration pneumonia Qualifiers: Aspiration pneumonia type: unspecified Laterality: unspecified laterality Lung location: unspecified part of lung Qualified Code(s): J69.0 - Pneumonitis due to inhalation of food and vomit Plan: Concerns for gram negatives and anaerobes. She will continue IV Zosyn. This is day #4 of treatment. (3) Elevated brain natriuretic peptide (BNP) level Plan: 2 days ago the patient received 40 mg of IV Lasix and put out over a liter of output. She had a negative BNP at that time. Currently her BNP is elevated. I am going to give her another dose of 40 mg of IV Lasix today. She has not had a 2D cardiac echo at this facility since 2012. I will obtain one to see whether she has any underlying heart failure. (4) Sacral decubitus ulcer, stage III Plan: We will continue local wound care. Family is bringing with they have been using at home as the wound has made some improvement recently. (5) Diabetes Qualifiers: Diabetes mellitus type: other specified (including ARELI) Diabetes mellitus complication status: without complication Diabetes mellitus nursing home insulin use: unspecified nursing home insulin use status Qualified Code(s): E13.9 - Other specified diabetes mellitus without complications Is this a current diagnosis for this admission?: Yes Plan: Continue sliding scale coverage. (6) HTN (hypertension) Qualifiers: Hypertension type: essential hypertension Qualified Code(s): I10 - Essential (primary) hypertension Is this a current diagnosis for this admission?: Yes Plan: Stable for now. (7) History of CVA with residual deficit Is this a current diagnosis for this admission?: Yes Plan: She is bedbound at baseline with the PEG tube. Family wants no aggressive intervention but wanted us to do what we can with IV antibiotics and fluids. They confirmed her DNR status during this hospitalization. She is improving. We are going to start increasing her tube feedings. She will need continuous feedings going forward. I will consult the discharge planners for a pump. (8) Hypokalemia Plan: I will replete today. We will recheck a level in the morning. (9) Metabolic acidosis Plan: Resolved (10) Obesity (BMI 30-39.9) Plan: This was previously documented as morbid obesity. At this point she does not meet the criteria for morbid obesity. Her tube feedings have been restarted and we are going to increase her rate over the next 24 hours and await recommendations from the dietitian tomorrow about what her goal rate is. (11) Elevated liver function tests Plan: Of undetermined significance at this point. Will recheck level in the morning. (12) DNR (do not resuscitate) Is this a current diagnosis for this admission?: Yes - Time Time Spent with patient: 25-34 minutes - Inpatient Certification Medical Necessity: Need for IV Antibiotics - Inpatient hospitalization remains necessary. The patient is bedbound with aspiration pneumonia requiring parenteral antibiotics. We need to start her back on continuous tube feedings and make sure that she can tolerate it. We need to get a tube feeding pump at home. Timing of disposition will be determined by her clinical course., Other
[2017-02-17] MEDS: PIPERACILLIN SODIUM/TAZOBACTAM 3.375 GM in NORMAL SALINE 100 ML IV SCH ×4 (06:25→23:22)
[2017-02-17] MEDS: LEVOTHYROXINE SODIUM 0.025 MG TABLET PEG SCH (06:26)
[2017-02-17 09:14] LABS: ANION GAP 12 (5-19); BLOOD UREA NITROGEN 19 mg/dL (7-20); CALCIUM 8.8 mg/dL (8.4-10.2); CARBON DIOXIDE 26 mmol/L (22-30); CHLORIDE 111 mmol/L (98-107); CREATININE RESULT 0.63 mg/dL (0.52-1.25); GLUCOSE 120 mg/dL (75-110); SODIUM 148.6 mmol/L (137-145)
[2017-02-17 09:19] LABS: POTASSIUM 2.9 mmol/L (3.6-5.0)
[2017-02-17] MEDS ORDERED: POTASSIUM CHLORIDE 20 MEQ/15 ML UDCUP PO ONE (09:33)
[2017-02-17] MEDS ORDERED: FUROSEMIDE 20 MG TABLET PO SCH (10:00)
[2017-02-17] MEDS ORDERED: POTASSIUM CHLORIDE 20 MEQ/15 ML UDCUP PEG ONE (10:30)
[2017-02-17] MEDS ORDERED: FUROSEMIDE INJ/PF 40 MG/4 ML SDV IV ONE (10:30)
[2017-02-17] MEDS: ASPIRIN 325 MG TABLET PEG SCH (11:14)
[2017-02-17] MEDS: METOPROLOL TARTRATE 25 MG TABLET PEG SCH ×2 (11:15→23:21)
[2017-02-17] MEDS: TOPIRAMATE 100 MG TABLET PEG SCH ×2 (11:15→23:21)
[2017-02-17] MEDS: POTASSI CL 20 MEQ/50 ML RIDER 20 MEQ/50 ML RTUPB IV SCH ×2 (11:16→17:21)
[2017-02-17] MEDS: AMLODIPINE BESYLATE 5 MG TABLET PEG SCH (11:16)
[2017-02-17] MEDS: ENOXAPARIN SODIUM INJ 40 MG/0.4 ML DISP.SYRIN SUBCUT SCH (11:16)
[2017-02-17 16:49] LABS: ANION GAP 14 (5-19); BLOOD UREA NITROGEN 17 mg/dL (7-20); CALCIUM 8.8 mg/dL (8.4-10.2); CARBON DIOXIDE 23 mmol/L (22-30); CHLORIDE 110 mmol/L (98-107); CREATININE RESULT 0.57 mg/dL (0.52-1.25); GLUCOSE 118 mg/dL (75-110); POTASSIUM 3.4 mmol/L (3.6-5.0); SODIUM 147.2 mmol/L (137-145)
--- NOTE | 2017-02-17 17:35 | PDOC PROGRESS REPORT ---
Subjective Progress Note for:: 02/17/17 Subjective:: Patient is seen on morning rounds resting in bed comfortably family members present. She is bedbound and requires PEG tube feedings at baseline secondary to a CVA that occurred several years ago. At her baseline she is conversational with family members. This morning she wakes easily to name call and does attempt to communicate with me; I do not understand what she states however family members to interpret this as her stating that she is comfortable and wanting to be discharged home because she is tired of her bed. She denies headache, dizziness, chest pain, dyspnea, cough, abdominal pain, nausea, vomiting, diarrhea. Family members are concerned about her continuous feedings and IV fluids. The family member's question why her IV fluids have been discontinued when she is still receiving only minimal tube feedings. We discussed at length her current cardiac and kidney function and the need to balance IV fluids with diuresis. They seem to understand and appreciate this discussion. All questions were answered. The patient, as interpreted by family members, states that she is comfortable and has no questions or concerns. Physical Exam Vital Signs: Temp Pulse Resp BP Pulse Ox 98.4 F 72 16 147/82 H 100 02/17/17 16:00 02/17/17 16:00 02/17/17 16:00 02/17/17 16:00 02/17/17 16:00 Pulse Oximeter Continuous Start: 02/14/17 14: 59 Freq: RTQ4 Status: Active Document 02/17/17 12:00 [facility] (Rec: 02/17/17 14:47 [facility] [email or web address]) Pulse Oximetry Assessment Oxygen Saturation (92-100) 100 Oxygen Flow Rate (L/min) 3 Oxygen Delivery Method Nasal Cannula Equipment Usage Equipment in Use Continuous SpO2 Machine # 2 Intake & Output 02/16/17 02/17/17 02/18/17 06:59 06:59 06:59 Intake Total 737 784 300 Output Total 152 519 0783 Balance 237 134 -900 Weight 90.3 kg 89.8 kg General appearance: PRESENT: no acute distress, hard of hearing, obese, well- developed, well-nourished Head exam: PRESENT: atraumatic, normocephalic Eye exam: PRESENT: conjunctiva pink, EOMI, PERRLA. ABSENT: scleral icterus Ear exam: PRESENT: normal external ear exam Mouth exam: PRESENT: moist, tongue midline Neck exam: ABSENT: carotid bruit, JVD, lymphadenopathy, thyromegaly Respiratory exam: PRESENT: crackles, decreased breath sounds - bibasilar; difficult to assess 2/2 body habitus, symmetrical, unlabored. ABSENT: rales, rhonchi, tachypnea, wheezes Cardiovascular exam: PRESENT: RRR, +S1, +S2. ABSENT: diastolic murmur, rubs, systolic murmur Pulses: PRESENT: normal dorsalis pedis pul Vascular exam: PRESENT: normal capillary refill GI/Abdominal exam: PRESENT: normal bowel sounds, soft. ABSENT: distended, guarding, mass, organolmegaly, rebound, tenderness Rectal exam: PRESENT: deferred Extremities exam: PRESENT: full ROM. ABSENT: calf tenderness, clubbing, pedal edema Neurological exam: PRESENT: alert, awake, oriented to person, oriented to place , oriented to time, oriented to situation, CN II-XII grossly intact. ABSENT: motor sensory deficit Psychiatric exam: PRESENT: appropriate affect, normal mood. ABSENT: homicidal ideation, suicidal ideation Skin exam: PRESENT: dry, intact, warm. ABSENT: cyanosis, rash Results Laboratory Results: 02/16/17 04:25 02/17/17 16:15 02/17/17 02/17/17 08:41 16:15 Sodium 148.6 H 147.2 H Potassium 2.9 L* 3.4 L Chloride 111 H 110 H Carbon Dioxide 26 23 Anion Gap 12 14 BUN 19 17 Creatinine 0.63 0.57 Est GFR ( Amer) > 60 > 60 Est GFR (Non-Af Amer) > 60 > 60 Glucose 120 H 118 H Calcium 8.8 8.8 02/14/17 02/15/17 02/16/17 15:16 09:20 04:25 NT-Pro-B Natriuret Pep 368 1170 H 1640 H 02/17/17 16:15 NT-Pro-B Natriuret Pep 1640 H Impressions: Chest X-Ray 02/16/17 00:00 IMPRESSION: No acute findings in the chest. Venous Doppler Study 02/16/17 00:00 IMPRESSION: NO EVIDENCE DVT OR SVT IN EITHER LEG. Assessment & Plan - Diagnosis (1) Respiratory distress Is this a current diagnosis for this admission?: Yes Plan: Improved. Respiratory distress secondary to resume aspiration pneumonia with concern for congestive heart failure as she has developed crackles and has an elevated BNP. Successfully weaned from BiPAP; she is now on 3 L of oxygen via nasal cannula. 1- BiPAP as needed 2- Supplemental oxygen to keep O2 sats greater than 88% 3- Albuterol nebs as needed (2) Elevated brain natriuretic peptide (BNP) level Is this a current diagnosis for this admission?: Yes Plan: On admission patient had a BNP of 368 which has increased to 1640. IV fluids have been held and she has received IV Lasix 40 mg x 2 with good urine output. Patient's weight is up nearly 15 kg. 1- echocardiogram pending 2- Lasix 20 mg IV BID (3) Aspiration pneumonia Qualifiers: Aspiration pneumonia type: unspecified Laterality: unspecified laterality Lung location: unspecified part of lung Qualified Code(s): J69.0 - Pneumonitis due to inhalation of food and vomit Plan: Improved. Patient presented with acute respiratory distress and HPI strongly indicative of aspiration pneumonia related to PEG tube feedings with reflux. 1- Continuous PEG tube feedings have been initiated at 20 mL's per hour. Guidelines provided for titrating up to a goal of 50 mL's per hour 2- Empiric coverage with Zosyn; blood cultures with no growth to date. This is day 5 of treatment (4) Diabetes Qualifiers: Diabetes mellitus type: other specified (including ARELI) Diabetes mellitus complication status: without complication Diabetes mellitus terminal operations supervisor insulin use: unspecified terminal operations supervisor insulin use status Qualified Code(s): E13.9 - Other specified diabetes mellitus without complications Is this a current diagnosis for this admission?: Yes Plan: Not currently on any home medication; diet controlled with PEG tube formula feedings. 6-Fzog-Togzx every 6 with sliding scale insulin for coverage 2-Will ask registered dietitian to make recommendations with regard to morbid obesity, diabetes, history of heart failure, with chronic pressure wound requiring continuous PEG tube feedings once enteral nutrition is resumed (5) Sacral wound Qualifiers: Encounter type: initial encounter Qualified Code(s): S31.000A - Unspecified open wound of lower back and pelvis without penetration into retroperitoneum, initial encounter Is this a current diagnosis for this admission?: Yes Plan: Sacral wound; POA. 1- We will ask registered dietitian to evaluate nutritional needs 2- Wound care per nursing protocols 3- Turn q2 hr (6) HTN (hypertension) Qualifiers: Hypertension type: essential hypertension Qualified Code(s): I10 - Essential (primary) hypertension Is this a current diagnosis for this admission?: Yes Plan: Acceptable. Continue home medications; amlodipine and metoprolol. (7) Morbid obesity Plan: As above. (8) DNR (do not resuscitate) Is this a current diagnosis for this admission?: Yes Plan: Patient's CODE STATUS was discussed with her daughters, Frieda and Renetta. They are both in agreement that the patient be a DNR/DNI. They report that she is established with [facility] and plan [facility] in the future. At this time they do request medical management to include IV antibiotics and continued PEG tube feedings and declined receding towards hospice/comfort care measures at this time. DNR/DNI (9) History of CVA with residual deficit Is this a current diagnosis for this admission?: Yes Plan: Patient with history of CVA 2012; she has been bedbound and has required PEG tube feedings since that time. Family does not want aggressive interventions but do request that we continue with IV in the buttocks and fluids as appropriate. They are appreciative of reinstituting her continuous tube feedings. (10) Elevated liver function tests Is this a current diagnosis for this admission?: Yes Plan: Of undetermined significance. Will monitor. (11) Hypokalemia Is this a current diagnosis for this admission?: Yes Plan: I will replete again today; recheck in the morning. Will schedule potassium supplementation daily. (12) Metabolic acidosis Is this a current diagnosis for this admission?: Yes Plan: Resolved. - Time Time Spent with patient: 35 or more minutes Medications reviewed and adjusted accordingly: Yes - Inpatient Certification Medical Necessity: Significant Comorbidiites Make Outpatient Treatment Too Risky , Need Close Monitoring Due to Risk of Patient Decompensation, Need For Continuous Telemetry Monitoring
--- NOTE | 2017-02-17 21:32 | XCELERA REPORT ---
[address] [address] Transthoracic Echocardiogram Report Name: KELLEN BEAVERS Age: 86 yrs Gender: Female : 1930 Patient Status: Inpatient Patient Location: [address] [place] [address] Study Date: 02/17/2017 01:56 PM Height: 60 in Weight: 199 lb BSA: 1.9 m2 Procedure: A complete two-dimensional transthoracic echocardiogram was performed (2D, M-mode, spectral and color flow Doppler). The study was technically difficult with many images being suboptimal in quality. Reason For Study: elevated bnp, respiratory failure Ordering Physician: RIO ZENG Performed By: Zandra Brown Interpretation Summary The study was technically difficult with many images being suboptimal in quality. The left ventricular ejection fraction is normal. Doppler measurements suggest pseudonormalized left ventricular relaxation, which is associated with grade II/IV or mild to moderate diastolic dysfunction There is mild concentric left ventricular hypertrophy. The left ventricle is grossly normal size. Regional wall motion abnormalities cannot be excluded due to limited visualization. The right ventricular systolic function is normal. The right ventricle is mildly dilated. The left atrium is mildly dilated. The right atrium is normal in size There is a trace to mild amount of mitral regurgitation There is no mitral valve stenosis. No aortic regurgitation is present. There is no aortic valve stenosis There is a trace or physiologic amount of tricuspid regurgitation Tricuspid regurgitation jet envelope not well defined to measure RV systolic pressure accurately. The aortic root is not well visualized. The inferior vena cava appeared normal and decreased > 50% with respiration (RAP 5-10 mmHg) There is no pericardial effusion. MMode/2D Measurements & Calculations RVDd: 3.4 cm LVIDd: 4.1 cm FS: 38.0 % Ao root diam: 2.5 cm IVSd: 1.2 cm LVIDs: 2.6 cm EDV(Teich): 76.0 ml LVPWd: 1.2 cm ESV(Teich): 23.9 ml Ao root area: 4.9 cm2 EF(Teich): 68.6 % LA dimension: 3.7 cm Doppler Measurements & Calculations MV E max dylan: MV P1/2t max dylan: Ao V2 max: LV V1 max P.5 cm/sec 73.1 cm/sec 137.3 cm/sec 3.6 mmHg MV A max dylan: MV P1/2t: 55.4 msec Ao max PG: LV V1 max: 117.0 cm/sec 7.5 mmHg 94.3 cm/sec MV E/A: 0.63 MVA(P1/2t): 4.0 cm2 MV dec slope: 386.2 cm/sec2 PA V2 max: TR max dylan: 91.8 cm/sec 211.7 cm/sec PA max P.4 mmHgTR max P.9 mmHg Left Ventricle The left ventricle is grossly normal size. There is mild concentric left ventricular hypertrophy. The left ventricular ejection fraction is normal. Doppler measurements suggest pseudonormalized left ventricular relaxation, which is associated with grade II/IV or mild to moderate diastolic dysfunction. Regional wall motion abnormalities cannot be excluded due to limited visualization. Right Ventricle The right ventricle is mildly dilated. The right ventricle appears to be hypertrophied. The right ventricular systolic function is normal. Atria The right atrium is normal in size. The left atrium is mildly dilated. Interarterial septum not well visualized and not well dopplered. Cannot comment on ASD/PFO presence. Mitral Valve The mitral valve is not well visualized. There is no mitral valve stenosis. There is a trace to mild amount of mitral regurgitation. Aortic Valve The aortic valve is not well visualized secondary to technical limitations. There is no aortic valve stenosis. No aortic regurgitation is present. Tricuspid Valve The tricuspid valve is not well visualized, but is grossly normal. There is no tricuspid stenosis. There is a trace or physiologic amount of tricuspid regurgitation. Tricuspid regurgitation jet envelope not well defined to measure RV systolic pressure accurately. Pulmonic Valve The pulmonic valve is not well visualized. Great Vessels The aortic root is not well visualized. The inferior vena cava appeared normal and decreased > 50% with respiration (RAP 5-10 mmHg). Effusions There is no pericardial effusion. : RIO ZENG > Warner Solorio
[2017-02-17] MEDS: FUROSEMIDE INJ/PF 20 MG/2 ML SDV IV SCH (23:21)
[2017-02-18] MEDS: LEVOTHYROXINE SODIUM 0.025 MG TABLET PEG SCH (06:11)
[2017-02-18] MEDS: PIPERACILLIN SODIUM/TAZOBACTAM 3.375 GM in NORMAL SALINE 100 ML IV SCH (06:11)
[2017-02-18 07:37] LABS: HEMATOCRIT 36.7 % (36.0-47.0); HEMOGLOBIN 12.2 g/dL (12.0-15.5); HGB HCT DIFFERENCE -0.1; MEAN CORPUSCULAR HEMOGLOBIN 29.5 pg (27.0-33.4); MEAN CORPUSCULAR HGB CONC 33.3 g/dL (32.0-36.0); MEAN CORPUSCULAR VOLUME 89 fl (80-97); RED BLOOD COUNT 4.13 10^6/uL (3.72-5.28); RED CELL DISTRIBUTION WIDTH 15.2 % (11.5-14.0); WHITE BLOOD COUNT 7.9 10^3/uL (4.0-10.5)
[2017-02-18 08:03] LABS: ALANINE AMINOTRANSFERASE 33 U/L (9-52); ALBUMIN 3.5 g/dL (3.5-5.0); ALKALINE PHOSPHATASE 166 U/L (38-126); ANION GAP 14 (5-19); ASPARTATE AMINO TRANSFERASE 38 U/L (14-36); BILIRUBIN,DIRECT 0.6 mg/dL (0.0-0.4); BILIRUBIN,TOTAL 0.9 mg/dL (0.2-1.3); BLOOD UREA NITROGEN 18 mg/dL (7-20); CALCIUM 8.6 mg/dL (8.4-10.2); CARBON DIOXIDE 25 mmol/L (22-30); CHLORIDE 110 mmol/L (98-107); CREATININE RESULT 0.57 mg/dL (0.52-1.25); GLUCOSE 120 mg/dL (75-110); POTASSIUM 3.3 mmol/L (3.6-5.0); SODIUM 149.1 mmol/L (137-145); TOTAL PROTEIN 8.1 g/dL (6.3-8.2)
--- NOTE | 2017-02-18 09:41 | PROGRESS NOTE E ---
Progress Note NAME: KELLEN BEAVERS : 1930 AGE: 86Y DATE: 02/18/2017 ROOM: 537 CODE STATUS: DO NOT RESUSCITATE CHIEF COMPLAINT: Unable to be obtained. SUBJECTIVE: The patient is currently lying in bed. The patient will open her eyes. The patient will answer yes or no to some questions. She denied any pain, but for the most part, the patient just stares. The family is present at the bedside, active in the patient's care. There have been no reported episodes of vomiting or diarrhea since yesterday. The patient has been afebrile. Her blood pressures have been in an acceptable range, and the patient is unable to voice any concerns at this time. REVIEW OF SYSTEMS: Unobtainable. MEDICATIONS: Medications have been reviewed. OBJECTIVE: GENERAL: The patient is an unfortunate 86-year-old -[place] female who will awaken, but is not completely responsive. She does not appear to be in any acute distress. VITAL SIGNS: Temperature is 98.0, pulse 72, respirations 18, blood pressure is 143/67, oxygen saturation 100% on 3 L nasal cannula. SKIN: Warm and dry. No rash. Not diaphoretic. HEENT: Pupils are almost pinpoint, sluggishly reactive. Mucous membranes appear moist. The patient does have JVP to the area of the right clavicle. CARDIOVASCULAR SYSTEM: Heart is regular. There is no murmur or rub. CHEST: Diminished, symmetrical, unlabored. ABDOMEN: Soft, nontender. PEG tube in situ. EXTREMITIES: No clubbing, cyanosis, edema. Lower extremities are warm. PSYCHIATRIC: Unable to fully assess. DIAGNOSTICS: Lab values are as follows: Hematology obtained on 02/08/2017: WBCs are 7.9, hemoglobin is 12.2, hematocrit is 36.7, platelet count is 201,000. Chemistry obtained on 02/18/2017: Sodium is 149, potassium 3.3, chloride is 110, carbon dioxide 25, BUN 18, creatinine is 0.57, glucose 120, calcium is 8.6, bilirubin is 0.9. AST 38, ALT is 33, Alk phos 166. Blood cultures obtained on 02/13/2017 reveal no growth. IMPRESSION AND PLAN: 1. ASPIRATION PNEUMONIA. The patient's lungs sound relatively clear. The patient has received 5 days of IV antibiotic therapy. Will transition to liquid Augmentin for her PEG tube and continue to keep the patient at an above 30 degree angle. PEG tubes are being titrated judiciously. 2. ACUTE ON CHRONIC HYPOXEMIC RESPIRATORY FAILURE. This is secondary to number 1. Will continue to maintain saturations greater than 88%. Patient has not needed a BiPAP. Hopefully we can overt this due to the patient's tube feeder. 3. DIASTOLIC DYSFUNCTION. The patient did receive a dose of Lasix. May have had a little too much volume resuscitation. Appears optivolemic at this point. 4. DIABETES MELLITUS TYPE 2. Will continue sliding scale coverage. 5. SACRAL WOUND. Will continue to follow. 6. HYPERTENSION. Will continue the patient's home blood pressure medications. 7. MORBID OBESITY. 8. ELEVATED LFTs. These are relatively mild, may be a component of fatty liver. 9. HYPOKALEMIA. This was repleted yesterday. Will start the patient on a daily dose for now. 10. METABOLIC ACIDOSIS, RESOLVED. 11. HISTORY OF CEREBROVASCULAR ACCIDENT WITH PROFOUND DEFICITS. The patient is quite debilitated and bedridden at this point. DISPOSITION: The patient is a DO NOT RESUSCITATE/DO NOT INTUBATE with conservative management. Pending patient's symptomatology and diagnostic findings, will re-evaluate in the a.m. The patient is to go home with a bridge to hospice. Time spent on this followup including assessment, plan, physical examination, patient education, family meeting, and review of previous and current medical records is 30 minutes. DICTATING PHYSICIAN: ALEK MORSE NP [id number] PHY#: [id number] ID: [id number] JOB#: [id number] ACCT: [id number] cc: >
[2017-02-18] MEDS ORDERED: FUROSEMIDE INJ/PF 20 MG/2 ML SDV IV SCH (10:00)
[2017-02-18] MEDS ORDERED: POTASSIUM CHLORIDE 20 MEQ/15 ML UDCUP PO SCH ×2 (10:00)
[2017-02-18] MEDS: ASPIRIN 325 MG TABLET PEG SCH (11:01)
[2017-02-18] MEDS: LACTOBACILLUS ACIDOPHILUS 250 MG TAB PO SCH ×2 (11:01→23:00)
[2017-02-18] MEDS: METOPROLOL TARTRATE 25 MG TABLET PEG SCH ×2 (11:01→23:01)
[2017-02-18] MEDS: AMLODIPINE BESYLATE 5 MG TABLET PEG SCH (11:01)
[2017-02-18] MEDS: ENOXAPARIN SODIUM INJ 40 MG/0.4 ML DISP.SYRIN SUBCUT SCH (11:01)
[2017-02-18] MEDS: TOPIRAMATE 100 MG TABLET PEG SCH ×2 (11:01→23:01)
[2017-02-18] MEDS: FUROSEMIDE INJ/PF 20 MG/2 ML SDV IV SCH ×2 (11:02→17:25)
[2017-02-18] MEDS: AMOXICILLIN TR/POT CLAVULANATE 250-62.5 MG/5 ML 75 ML PO SCH ×2 (15:01→23:00)
[2017-02-19] MEDS: LEVOTHYROXINE SODIUM 0.025 MG TABLET PEG SCH (06:13)
[2017-02-19] MEDS: AMOXICILLIN TR/POT CLAVULANATE 250-62.5 MG/5 ML 75 ML PO SCH ×3 (06:34→23:16)
[2017-02-19 07:20] LABS: HEMATOCRIT 39.6 % (36.0-47.0); HGB HCT DIFFERENCE -0.6; MEAN CORPUSCULAR HEMOGLOBIN 29.1 pg (27.0-33.4); MEAN CORPUSCULAR HGB CONC 32.8 g/dL (32.0-36.0); MEAN CORPUSCULAR VOLUME 89 fl (80-97); RED BLOOD COUNT 4.47 10^6/uL (3.72-5.28); RED CELL DISTRIBUTION WIDTH 15.4 % (11.5-14.0); WHITE BLOOD COUNT 7.3 10^3/uL (4.0-10.5)
[2017-02-19 08:19] LABS: ANION GAP 17 (5-19); BLOOD UREA NITROGEN 21 mg/dL (7-20); CALCIUM 9.4 mg/dL (8.4-10.2); CARBON DIOXIDE 25 mmol/L (22-30); CHLORIDE 109 mmol/L (98-107); CREATININE RESULT 0.59 mg/dL (0.52-1.25); GLUCOSE 123 mg/dL (75-110); MAGNESIUM 1.7 mg/dL (1.6-2.3); POTASSIUM 3.2 mmol/L (3.6-5.0); SODIUM 151.4 mmol/L (137-145)
--- NOTE | 2017-02-19 10:00 | PROGRESS NOTE E ---
Progress Note NAME: KELLEN BEAVERS : 1930 AGE: 86Y DATE: 02/19/2017 ROOM: 537 CODE STATUS: DO NOT RESUSCITATE; DO NOT INTUBATE CHIEF COMPLAINT: I want to go home. SUBJECTIVE: The patient is currently lying in bed. The patient did recognize me from the door, which was an improvement in comparison to yesterday. The patient is alert and awake and does express the desire to go home. Unfortunately, the patient's PEG feedings are still at only 20 mL/h. The patient is more hypernatremic and does need will some free water flushes. Will discuss with the family and will repeat her chest x-ray for point of reference. The patient is unable to voice any specific concerns at this time. REVIEW OF SYSTEMS: Unobtainable given the patient's mental status. MEDICATIONS: Medications have been reviewed. OBJECTIVE: GENERAL: The patient is an 86-year-old -[place]er female who is awake and alert. She is oriented to person but not fully oriented to situation. She is quite delayed. She does not appear to distressed though. VITAL SIGNS: Temperature is 98.5, pulse 89, respirations 18, blood pressure is 170/90, oxygen saturation 95% on 2.5 L nasal cannula. SKIN: Warm and dry. She is not diaphoretic. HEENT: Pupils are reactive. Conjunctivae pale. There is no evidence of JVP. CARDIOVASCULAR SYSTEM: Heart is regular. There is no rub. CHEST: Diminished. The patient puts forth poor inspiratory effort. Symmetrical, unlabored. ABDOMEN: Soft, nontender, nondistended. PEG tube in situ. EXTREMITIES: No clubbing, cyanosis or edema. PSYCHIATRIC: The patient is awake and alert. DIAGNOSTICS: Lab values are as follows: Hematology obtained on 02/19/2017: WBCs are 7.3, hemoglobin is 13.0, hematocrit is 39.2, platelet count is 217,000. Chemistry obtained on 02/19/2017: Sodium is 151, potassium 3.2, chloride is 109, carbon dioxide 25, BUN 21, creatinine is 0.59, glucose 123, calcium is 9.4, magnesium is 1.7. IMPRESSION AND PLAN: 1. ASPIRATION PNEUMONIA. The patient has received 5 days of IV antibiotic therapy. Have transitioned over to oral Augmentin. Will repeat chest x-ray today and follow. 2. ACUTE ON CHRONIC HYPOXEMIC RESPIRATORY FAILURE. Secondary to #1. The patient has no longer required a BiPAP and is able to maintain this on nasal cannula. 3. DIASTOLIC DYSFUNCTION. The patient received a dose of Lasix. May have gotten a little too much volume resuscitation. She appears optivolemic at this point. 4. DIABETES MELLITUS TYPE 2. Continue sliding scale coverage. 5. HYPERNATREMIA. The patient does have a free water deficit. Will add flushes and follow chemistry in the a.m. 6. SACRAL WOUND. Will follow. 7. HYPERTENSION. Blood pressures are somewhat labile. Will continue medications and follow. 8. MORBID OBESITY. 9. ELEVATED LFTs. Relatively mild, most likely fatty liver. 10. HYPOKALEMIA. This has been persistent. Will go ahead and increase doses. 11. METABOLIC ACIDOSIS, RESOLVED. 12. CEREBROVASCULAR DISEASE WITH A HISTORY OF A CEREBROVASCULAR ACCIDENT WITH PROFOUND DEFICITS. The patient is quite debilitated and bedridden. DISPOSITION: The patient is a DO NOT RESUSCITATE/DO NOT INTUBATE with conservative management. Pending patient's symptomatology and diagnostic findings, will re-evaluate in the a.m. Time spent on this followup including assessment, plan, physical examination, patient education, family meeting, and review of records is 25 minutes. DICTATING PHYSICIAN: ALEK MORSE NP [id number] ESTEBANY#: [id number] ID: [id number] JOB#: [id number] ACCT: [id number] cc: >
[2017-02-19] MEDS: TOPIRAMATE 100 MG TABLET PEG SCH ×2 (10:54→23:16)
[2017-02-19] MEDS: POTASSIUM CHLORIDE 20 MEQ/15 ML UDCUP PO SCH ×2 (10:54→23:16)
[2017-02-19] MEDS: AMLODIPINE BESYLATE 5 MG TABLET PEG SCH (10:54)
[2017-02-19] MEDS: FENTANYL 12 MCG/HR PATCH.TD72 TD SCH (10:54)
[2017-02-19] MEDS: ASPIRIN 325 MG TABLET PEG SCH (10:54)
[2017-02-19] MEDS: LACTOBACILLUS ACIDOPHILUS 250 MG TAB PO SCH ×2 (10:55→23:17)
[2017-02-19] MEDS: FUROSEMIDE INJ/PF 20 MG/2 ML SDV IV SCH ×2 (10:55→17:12)
[2017-02-19] MEDS: METOPROLOL TARTRATE 25 MG TABLET PEG SCH ×2 (10:55→23:16)
[2017-02-19] MEDS: ENOXAPARIN SODIUM INJ 40 MG/0.4 ML DISP.SYRIN SUBCUT SCH (10:55)
--- NOTE | 2017-02-19 12:39 | RADIOLOGY REPORT (SQ) ---
EXAM DESCRIPTION: CHEST SINGLE VIEW COMPLETED DATE/TIME: 02/19/2017 12:14 pm REASON FOR STUDY: FU PNA COMPARISON: 02/16/2017 EXAM PARAMETERS: NUMBER OF VIEWS: One view. TECHNIQUE: Single frontal radiographic view of the chest acquired. RADIATION DOSE: NA LIMITATIONS: None. FINDINGS: LUNGS AND PLEURA: No opacities, masses or pneumothorax. No pleural effusion. MEDIASTINUM AND HILAR STRUCTURES: No masses. Contour normal. HEART AND VASCULAR STRUCTURES: Heart normal in size. Normal vasculature. BONES: No acute findings. HARDWARE: Pacemaker. OTHER: No other significant finding. IMPRESSION: NO ACUTE RADIOGRAPHIC FINDING IN THE CHEST. TECHNICAL DOCUMENTATION: JOB ID: [id number] [employer]- All Rights Reserved
[2017-02-20] MEDS: LEVOTHYROXINE SODIUM 0.025 MG TABLET PEG SCH (07:04)
[2017-02-20] MEDS: AMOXICILLIN TR/POT CLAVULANATE 250-62.5 MG/5 ML 75 ML PO SCH ×3 (07:04→22:35)
[2017-02-20] MEDS: ENOXAPARIN SODIUM INJ 40 MG/0.4 ML DISP.SYRIN SUBCUT SCH (09:19)
[2017-02-20] MEDS: TOPIRAMATE 100 MG TABLET PEG SCH ×2 (09:21→22:34)
[2017-02-20] MEDS: LACTOBACILLUS ACIDOPHILUS 250 MG TAB PO SCH ×2 (09:21→22:34)
[2017-02-20] MEDS: POTASSIUM CHLORIDE 20 MEQ/15 ML UDCUP PO SCH ×2 (09:21→22:35)
[2017-02-20] MEDS: METOPROLOL TARTRATE 25 MG TABLET PEG SCH ×2 (09:21→22:34)
[2017-02-20] MEDS: ASPIRIN 325 MG TABLET PEG SCH (09:21)
[2017-02-20] MEDS: AMLODIPINE BESYLATE 5 MG TABLET PEG SCH (09:22)
--- NOTE | 2017-02-20 09:34 | DISCHARGE SUMMARY E ---
Discharge Summary NAME: KELLEN BEAVERS : 1930 AGE: 86Y ADMITTED: 02/13/2017 DISCHARGED: 02/20/2017 CODE STATUS: DO NOT RESUSCITATE/DO NOT INTUBATE. PRIMARY CARE PROVIDER: Tara Patel DISCHARGE DIAGNOSIS INCLUDES: 1. Aspiration pneumonia. 2. Acute on chronic hypoxemic respiratory failure secondary to #1. 3. Diastolic dysfunction. 4. Diabetes mellitus type 2. 5. Hypernatremia from free water deficit. 6. Sacral wound. 7. Hypertension. 8. Morbid obesity. 9. Fatty liver disease. 10. Hypokalemia. 11. Metabolic acidosis which resolved. 12. Cerebrovascular disease with a history of CVA and profound deficits. DISCHARGE MEDICATIONS INCLUDE: 1. Pro-Stat formula 40 mL an hour with 150 mL water flushes every 6 hours. 2. Potassium 20 mEq per PEG daily. 3. Augmentin suspension 250-62.5 mg, 500 mg via PEG every 8 hours x2 more days. 4. Zinc 25 mg p.o. on Friday/. 5. Topamax 100 mg p.o. every 12 hours. 6. Protonix 40 mg p.o. daily. 7. Centrum 9 mg via PEG daily. 8. Metoprolol 25 mg via PEG every 12 hours. 9. Levothyroxine 25 mcg via PEG daily. 10. Duragesic 12.5 mcg patch 1 patch every 72 hours. 11. Pulmicort 0.5 mg nebs every 12 hours p.r.n. 12. Aspirin 325 mg via PEG daily. 13. Vitamin C 500 mg via PEG on Tuesdays and . 14. Norvasc 5 mg via PEG daily. 15. Albuterol 2.5 mg via inhalation every 6 hours p.r.n. DIET: Tube feedings. ACTIVITY: As tolerated. DIAGNOSTICS: Lab values are as follows. Hematology obtained on 02/19/2017: WBCs are 7.3, hemoglobin is 13.0, hematocrit is 39.6, platelet count is 217,000. Coagulation obtained on 02/13/2017: PT is 13.1, INR is 0.93. Chemistry obtained on 02/19/2017: Sodium is 151, potassium 3.2, chloride is 109, carbon dioxide 25, BUN 21, creatinine is 0.59, glucose 123, calcium is 9.4, magnesium is 1.7. Urinalysis obtained on 02/13/2017: Color yellow, appearance slightly cloudy, pH 7.0, specific gravity 1.010, protein 100, glucose negative, ketones negative, occult blood negative, nitrite negative, bilirubin negative, urobilinogen negative, leukocyte esterase is negative, WBCs 1, RBCs 0, casts 1, bacteria trace. Chest x-ray obtained on 02/13/2017 reveals no acute cardiopulmonary findings. Chest x-ray obtained on 02/13/2017 reveals borderline cardiomegaly with no failure. Chest x-ray obtained on 02/16/2017 reveals no acute radiographic finding of the chest. Venous Doppler study obtained on 02/16/2017 reveals no evidence of DVT or SVT in either leg. Chest x-ray obtained on 02/19/2017 reveals no acute radiographic finding of the chest. EKG obtained on 02/13/2017 reveals sinus rhythm. EKG obtained on 02/14/2017 reveals a paced rhythm. Echocardiogram obtained on 02/17/2017 reveals [id number] diastolic dysfunction with mild left ventricular hypertrophy. PHYSICAL EXAMINATION: GENERAL: On examination, the patient is a frail, chronically ill-appearing, 86-year-old -[place] female who is awake, alert, semi-verbal. She does not appear to be in any acute distress. VITAL SIGNS: As follows: Temperature is 98.6, pulse 78, respirations 16, blood pressure 143/74, oxygen saturation is 98% on room air. SKIN: Warm and dry. No rash. She is not diaphoretic. HEENT: Pupils are equal, round, and reactive to light and accommodation. Conjunctiva is pale. Mucous membranes are moist. There is no evidence of JVP. CARDIOVASCULAR: Heart is regular. No rub. CHEST: Clear, symmetrical, unlabored. ABDOMEN: Soft. Bowel sounds are present. PEG tube in situ. EXTREMITIES: There is no edema. Does have some upper extremity dependent third space edema. PSYCHIATRIC: The patient will awaken but unable to fully assess. HISTORY OF PRESENT ILLNESS: The patient is an 86-year-old -[place] female with a past medical history of cerebrovascular accident with profound deficits resulting in PEG feedings. The patient presented to the emergency department via EMS when her family sent her in due to difficulty breathing and decreased alertness. The history was obtained from the patient's daughters who were present at the bedside. The patient was able to make eye contact in the emergency department but nothing further. The patient was noted to be diaphoretic and making gurgling noises with breathing. The patient's daughter has stated that for several months they had difficulty managing her tube feedings due to gurgling breath sounds at times. It appears the patient has had difficulties with aspiration at home for quite some time. The patient did not have any overt evidence of aspiration on a chest x-ray; however, she was in such distress she was placed on BiPAP and was referred to the hospitalist for admission management. HOSPITAL COURSE: The patient was admitted to continuous telemetry unit. The patient had no events while on monitoring specialist. The patient was covered with Zosyn and the patient's respiratory status continued to improve. The patient's feedings were resumed for which she has tolerated. The patient was transitioned to antibiotics via PEG 48 hours ago with no overall change in condition. The patient has remained afebrile with labile blood pressures, at times systolic blood pressures in the 170s down to the 130s. The family is agreeable to discharge with a bridge to hospice. The patient at one point appeared to be over resuscitated and did receive Lasix diuresis. Additionally, the patient does appear to have third spacing edema due to her hypoalbuminemia. The patient's prognosis is quite grave. DISCHARGE PLANNING: The patient will return home with Home Health with bridge to hospice. Do recommend the patient have follow-up labs through primary care provider such as potassium and sodium as the patient did present with what appeared to be an apparent free water deficit. Time spent on this discharge, including assessment/plan, physical examination, patient education, family meeting, resource alignment, was 40 minutes. DICTATING PHYSICIAN: ALEK MORSE NP [id number] PHY#: [id number] ID: [id number] JOB#: [id number] ACCT: [id number] cc:ALEK MORSE NP >
[2017-02-20] MEDS: BUDESONIDE NEB 0.5 MG/2 ML AMPUL NEB SCH (20:56)
[2017-02-21] MEDS: LEVOTHYROXINE SODIUM 0.025 MG TABLET PEG SCH (06:08)
[2017-02-21] MEDS: AMOXICILLIN TR/POT CLAVULANATE 250-62.5 MG/5 ML 75 ML PO SCH ×2 (06:08→14:27)
[2017-02-21] MEDS: BUDESONIDE NEB 0.5 MG/2 ML AMPUL NEB SCH (08:32)
[2017-02-21] MEDS: LACTOBACILLUS ACIDOPHILUS 250 MG TAB PO SCH (10:11)
[2017-02-21] MEDS: METOPROLOL TARTRATE 25 MG TABLET PEG SCH (10:11)
[2017-02-21] MEDS: POTASSIUM CHLORIDE 20 MEQ/15 ML UDCUP PO SCH (10:11)
[2017-02-21] MEDS: ASPIRIN 325 MG TABLET PEG SCH (10:12)
[2017-02-21] MEDS: AMLODIPINE BESYLATE 5 MG TABLET PEG SCH (10:13)
[2017-02-21] MEDS: TOPIRAMATE 100 MG TABLET PEG SCH (10:13)
[2017-02-21] MEDS: ENOXAPARIN SODIUM INJ 40 MG/0.4 ML DISP.SYRIN SUBCUT SCH (10:13)
[2017-02-21] MEDS ORDERED: OXYBUTYNIN CHLORIDE 5 MG TABLET PO ONE (10:30)
--- NOTE | 2017-02-21 15:57 | PDOC DISCHARGE SUMMARY ---
General - Admit/Disc Date/PCP Admission Date/Primary Care Provider: 02/13/17 10:11 JOSE ALBERTO BOOKER MD Discharge Date: 02/21/17 - Discharge Diagnosis (4) DNR (do not resuscitate) Is this a current diagnosis for this admission?: Yes (5) Diabetes Is this a current diagnosis for this admission?: Yes (6) Elevated brain natriuretic peptide (BNP) level Is this a current diagnosis for this admission?: Yes (7) Elevated liver function tests Is this a current diagnosis for this admission?: Yes (8) HTN (hypertension) Is this a current diagnosis for this admission?: Yes - Additional Information Discharge Diet: Tube Feeding (Comments) - @40cc/hr. With 150cc flushes ever 6 hours Discharge Activity: Bedrest Home Medications: Albuterol Sulfate [Albuterol Sulfate 2.5mg/3 mL] 2.5 mg IH [id number] PRN 02/13/17 Amino Acids/Protein Hydrolys [Pro-Stat Max Liquid] 0 ml PO ASDIR PRN 02/13/17 Amlodipine Besylate [Norvasc 5 mg Tablet] 5 mg PO DAILY 02/13/17 Ascorbic Acid [Vitamin C 500 mg Tablet] 500 mg PO TUTH@1000 02/13/17 Aspirin [Aspirin 325 mg Tablet] 325 mg PO DAILY 02/13/17 Budesonide [Pulmicort Neb 0.5 mg/2 ml Ampul] 0.5 mg NEB [id number] PRN 02/13/17 Fentanyl [Duragesic 12 Mcg/Hr Transdermal Patch] 1 each TD Q3D MDD due for change 02/13/17 02/13/17 Levothyroxine Sodium [Unithroid] 25 mcg PO Q6AM 02/13/17 Metoprolol Tartrate [Lopressor 25 mg Tablet] 25 mg PO Q12 02/13/17 Multivit-Minerals/Ferrous Gluc [Centrum Multivit-Mineral Liq] 9 mg PO DAILY 12/22 Pantoprazole Sodium [Protonix] 40 mg PO DAILY 02/13/17 Topiramate [Topamax 100 mg Tablet] 100 mg PO Q12 02/13/17 Zinc Acetate [Galzin] 25 mg PO TUTH@1000 02/13/17 Amox Tr/Potassium Clavulanate [Augmentin 250-62.5 mg/5 ml Susp] 500 mg PO Q8 #1 bottle 02/20/17 Potassium Chloride [Kaon-Cl 20 Meq/15 ml Udcup] 20 meq PO DAILY #30 udc Oxybutynin Chloride [Ditropan Syrup 1 mg/1 ml 60 ml] 1 mg PEG BID #60 ml History of Present Illness History of Present Illness: KELLEN BEAVERS is a 86 year old female Patient was admitted for aspiration pneumonia with acute on chronic hypoxia respiratory failure, diastolic dysfunction, diabetes type 2, cerebral accident with profound deficits, hypernatremia most likely from free water deficiency. Patient was given IV hydration, was treated for pneumonia, she responded well to antibiotics. While the patient was here we did change her PEG tube and we had to place an indwelling Alves catheter because patient had a neurogenic bladder. Please see discharge summary dictated no new changes in status from 02/20/2017. Hospital Course Hospital Course: Please see discharge summary dictated on 02/20/2017. Patient was not discharged home due to she will did not urinate after her Alves catheter was removed and we had to replace it. I have started her on Ditropan and based upon results with bladder training outpatient patient will be sent home with Alves catheter for now. I have encouraged family to continue giving patient her vitamin C 1000 mg daily for prevention of UTI. Physical Exam Vital Signs: Temp Pulse Resp BP Pulse Ox 98.4 F 72 14 145/65 H 99 02/20/17 23:26 02/21/17 08:32 02/21/17 08:32 02/20/17 23:26 02/21/17 08:32 Pulse Oximeter Continuous Start: 02/14/17 14: 59 Freq: RTQ4 Status: Complete Document 02/20/17 12:00 [facility] (Rec: 02/20/17 12:37 [facility] [email or web address]) Pulse Oximetry Assessment Oxygen Saturation (92-100) 100 Oxygen Flow Rate (L/min) 2 Oxygen Delivery Method Nasal Cannula Equipment Usage Equipment in Use Continuous SpO2 Machine # 2 Intake & Output 02/20/17 02/21/17 02/22/17 06:59 06:59 06:59 Intake Total 3 1050 220 Output Total 390 100 Balance -387 950 220 Weight 87.8 kg 87.6 kg General appearance: PRESENT: no acute distress, well-nourished Head exam: PRESENT: atraumatic Mouth exam: PRESENT: moist, tongue midline Respiratory exam: PRESENT: clear to auscultation geraldine, unlabored Pulses: PRESENT: normal carotid pulses GI/Abdominal exam: PRESENT: soft. ABSENT: tenderness Rectal exam: PRESENT: deferred Extremities exam: PRESENT: clubbing. ABSENT: full ROM Neurological exam: PRESENT: alert - moderate wall Psychiatric exam: PRESENT: other - 1 Focused psych exam: PRESENT: other Skin exam: PRESENT: intact, warm Results Laboratory Results: 02/19/17 07:06 02/19/17 07:06 02/14/17 02/15/17 02/16/17 15:16 09:20 04:25 NT-Pro-B Natriuret Pep 368 1170 H 1640 H 02/17/17 16:15 NT-Pro-B Natriuret Pep 1640 H Impressions: Venous Doppler Study 02/16/17 00:00 IMPRESSION: NO EVIDENCE DVT OR SVT IN EITHER LEG. Chest X-Ray 02/19/17 00:00 IMPRESSION: NO ACUTE RADIOGRAPHIC FINDING IN THE CHEST.
[2017-02-21 16:36] VITALS: BP 144/67
[2017-02-21] MEDS ORDERED: OXYBUTYNIN CHLORIDE 5 MG TABLET PO SCH (22:00)
== END 2017-02-21 17:28 | disposition home health service (06) | DRG 177 ==
LOC: ER 04:53 → EH 09:19 → UNDOADMIN 09:19 → 5 10:11 → EH 10:40 → 5 10:40
PROVIDERS: ADMIT Internal Medicine; ATTEND Internal Medicine
PROC: 0D20XUZ Change Feeding Device in Upper Intestinal Tract, External Approach (ICD-10-PCS; principal; 2017-02-21)
DX: J69.0 Pneumonitis due to inhalation of food and vomit (principal); J96.21 Acute and chronic respiratory failure with hypoxia; L89.153 Pressure ulcer of sacral region, stage 3; J96.22 Acute and chronic respiratory failure with hypercapnia; E87.2 Acidosis; I69.359 Hemiplegia and hemiparesis following cerebral infarction affecting unspecified side; E87.0 Hyperosmolality and hypernatremia; I50.30 Unspecified diastolic (congestive) heart failure; Z66 Do not resuscitate; E11.9 Type 2 diabetes mellitus without complications; I11.0 Hypertensive heart disease with heart failure; E87.6 Hypokalemia; I25.10 Atherosclerotic heart disease of native coronary artery without angina pectoris; E78.5 Hyperlipidemia, unspecified; J44.9 Chronic obstructive pulmonary disease, unspecified; I69.320 Aphasia following cerebral infarction; K21.9 Gastro-esophageal reflux disease without esophagitis; R74.8 Abnormal levels of other serum enzymes; E66.01 Morbid (severe) obesity due to excess calories; Z93.1 Gastrostomy status; Z74.01 Bed confinement status
CPT/HCPCS: 36415; 36600; 51702; 71010; 80048; 80053; 80076; 81001; 82803; 82962; 83605; 83735; 83880; 84100; 84484; 85025; 85027; 85610; 87040; 87086; 87493; 93005; 93010; 93306; 93970; 94660; 94762; 96365; 99285; J0360; J1650; J1940; J2543; J3480; J3490; J7030; S0164

== ENCOUNTER 2017-02-24 21:15 | Emergency (ER) | payer MEDICARE, MEDICAID ==
--- NOTE | 2017-02-24 21:34 | ER Document Report ---
ED GI/ - General Stated Complaint: FEEDING TUBE ISSUES Time Seen by Provider: 02/24/17 21:33 Mode of Arrival: Stretcher Information source: Relative TRAVEL OUTSIDE OF THE [place] IN LAST 30 DAYS: No - HPI Patient complains to provider of: Feeding tube problem Onset: Just prior to arrival Timing/Duration: Sudden Quality of pain: No pain Associated symptoms: None Exacerbated by: Denies Relieved by: Denies Similar symptoms previously: Yes Recently seen / treated by doctor: Yes Notes: 02/24/17 23:11 Patient is an 86-year-old female brought to the emergency room by EMS after her gastrostomy tube came out, patient is on tube feedings for nutrition, had it changed recently and unfortunately the regular G-tube fitting did not fit the feedings at home so apparently the glost tile shader cut the old fitting off and placed a new fitting in the tube, unfortunately this seems to have deflated the balloon which caused the G-tube to become dislodged, patient is accompanied by her daughter who reports no other problems she would just like to have the gastrostomy tube replaced - Related Data Allergies/Adverse Reactions: phenytoin sodium [From Dilantin] Allergy (Verified 07/12/16 14:28) phenytoin sodium extended [From Dilantin] Allergy (Verified 07/12/16 14:28) Past Medical History - General Information source: Relative - Social History Smoking Status: Unknown if Ever Smoked Family History: Reviewed & Not Pertinent, CVA - Past Medical History Cardiac Medical History: Reports: Hx Congestive Heart Failure, Hx Coronary Artery Disease, Hx Hypercholesterolemia, Hx Hypertension Pulmonary Medical History: Reports: Hx COPD Neurological Medical History: Reports: 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, 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 Endocrine Medical History: Reports: Hx Diabetes Mellitus Type 2 GI Medical History: Reports: Hx Gastroesophageal Reflux Disease Musculoskeltal Medical History: Reports Hx Arthritis Psychiatric Medical History: Reports: Hx Dementia Denies: Hx Depression Infectious Medical History: Reports: Hx C-Diff Past Surgical History: Reports: Hx Section, Hx Cholecystectomy, Hx Hysterectomy, Hx Orthopedic Surgery - left hip, Hx Pacemaker, Hx Thyroid Surgery , Other - Peg tube - Immunizations Hx Diphtheria, Pertussis, Tetanus Vaccination: - unknown Hx Pneumococcal Vaccination: 10/05/14 Review of Systems - Review of Systems Constitutional: No symptoms reported EENT: No symptoms reported Cardiovascular: No symptoms reported Respiratory: No symptoms reported Gastrointestinal: See HPI Genitourinary: No symptoms reported Female Genitourinary: No symptoms reported Musculoskeletal: No symptoms reported Skin: No symptoms reported Hematologic/Lymphatic: No symptoms reported Neurological/Psychological: No symptoms reported -: Yes All other systems reviewed and negative Physical Exam - Vital signs Vitals: Temp Pulse Resp BP Pulse Ox 98.8 F 78 16 153/72 H 100 02/24/17 21:30 02/24/17 21:30 02/24/17 21:30 02/24/17 21:30 02/24/17 21:30 - Notes Notes: - General General appearance: Appears well, Alert In distress: None - HEENT Head: Normocephalic, Atraumatic Eyes: Normal Conjunctiva: Normal Extraocular movements intact: Yes Eyelashes: Normal Pupils: PERRL - Respiratory Respiratory status: No respiratory distress - Cardiovascular Rhythm: Regular - Abdominal Inspection: Open stoma to right upper quadrant of abdomen - Back Back: Normal - Extremities General upper extremity: Normal inspection General lower extremity: Normal inspection - Neurological Neuro grossly intact: Yes Orientation: AAOx4 Pep Coma Scale Eye Opening: Spontaneous Ike Coma Scale Verbal: Oriented Pep Coma Scale Motor: Obeys Commands Ike Coma Scale Total: 15 - Psychological Associated symptoms: Normal affect, Normal mood - Skin Skin Temperature: Warm Skin Moisture: Dry Skin Color: Normal Course - Re-evaluation Re-evalutation: 02/24/17 23:12 22 [place] gastrostomy tube was easily placed in the open stoma in the right upper quadrant of the abdomen, was positive gastric contents immediately, patient was then discharged back home with instructions for follow-up, daughter was advised to return with patient if any additional concerns, daughter acknowledges understanding and agreement with this plan - Vital Signs Vital signs: Temp Pulse Resp BP Pulse Ox 98.8 F 78 16 153/72 H 100 02/24/17 21:30 02/24/17 21:30 02/24/17 21:30 02/24/17 21:30 02/24/17 21:30 Procedures - Additional Procedures Gastric tube replacement Time performed: 22:00 Additional Procedures: Gastric tube replacement - 22 [place] gastrostomy tube placed in an open stoma in the right upper quadrant of abdomen without difficulty, positive gastric fluid immediately seen in tubing Discharge - Discharge Clinical Impression: Dislodged gastrostomy tube Condition: Stable Disposition: HOME, SELF-CARE Instructions: Transdermal Gastric Tube Placement ([facility]) Additional Instructions: Follow up with your primary care provider in one to 2 days. Return to the emergency room immediately if symptoms worsen or any additional concerns.
[2017-02-25] MEDS ORDERED: NORMAL SALINE 500 ML IV ONE (00:50)
--- NOTE | 2017-02-25 00:50 | ER Document Report ---
Doctor's Note Notes: 02/25/17 00:48 Patient is an 86-year-old female that was just discharged by Dr. Ragsdale. Patient was waiting to be brought home and then she had a seizure. After the seizure she is hypotensive. Family is at bedside. Family says that she is bedridden and she has similar seizures in the past at home. They said that she generally does become hypotensive with her seizures. Patient's seizures consist of her staring off without significant convulsions. She eventually will come to according to family. Denies any recent medication changes. She does have history of heart failure does have pacemaker in place. The labs were obtained during her visit today because she was just here for feeding tube replacement. We will give the patient 500 mL's of normal saline. I will check her electrolytes. We will monitor the patient to make sure blood pressure returns to normal and that her mental status returns back to her baseline. Patient's is soft and not firm. Patient is currently in what appears to be postictal state and not responsive and somnolent appearing. Patient does not follow commands at this time.
[2017-02-25 01:09] LABS: ABSOLUTE BASOPHILS # (AUTO) 0.1 10^3/uL (0.0-0.2); ABSOLUTE EOSINOPHILS # (AUTO) 0.2 10^3/uL (0.0-0.6); ABSOLUTE LYMPHOCYTES (AUTO) 2.6 10^3/uL (0.5-4.7); ABSOLUTE MONOCYTES (AUTO) 0.8 10^3/uL (0.1-1.4); ABSOLUTE NEUT (AUTO) 4.3 10^3/uL (1.7-8.2); BASOPHILS % (AUTO) 1.4 % (0-2); HEMOGLOBIN 12.1 g/dL (12.0-15.5); HGB HCT DIFFERENCE -0.7; LYMPHOCYTES % (AUTO) 32.8 % (13-45); MEAN CORPUSCULAR HEMOGLOBIN 29.4 pg (27.0-33.4); MEAN CORPUSCULAR HGB CONC 32.6 g/dL (32.0-36.0); MEAN CORPUSCULAR VOLUME 90 fl (80-97); MONOCYTES % (AUTO) 9.9 % (3-13); RED CELL DISTRIBUTION WIDTH 15.4 % (11.5-14.0); SEGMENTED NEUTROPHILS % (AUTO) 52.9 % (42-78)
[2017-02-25] MEDS ORDERED: TOPIRAMATE 100 MG TABLET PEG ONE (01:11)
[2017-02-25] MEDS ORDERED: TOPIRAMATE 100 MG TABLET ONE (01:27)
[2017-02-25 01:49] LABS: ALANINE AMINOTRANSFERASE 28 U/L (9-52); ALBUMIN 3.3 g/dL (3.5-5.0); ALKALINE PHOSPHATASE 139 U/L (38-126); ANION GAP 10 (5-19); ASPARTATE AMINO TRANSFERASE 38 U/L (14-36); BILIRUBIN,DIRECT 0.3 mg/dL (0.0-0.4); BILIRUBIN,TOTAL 0.3 mg/dL (0.2-1.3); BLOOD UREA NITROGEN 35 mg/dL (7-20); CALCIUM 9.2 mg/dL (8.4-10.2); CARBON DIOXIDE 25 mmol/L (22-30); CHLORIDE 113 mmol/L (98-107); GLUCOSE 127 mg/dL (75-110); SODIUM 147.8 mmol/L (137-145); TOTAL PROTEIN 7.9 g/dL (6.3-8.2)
[2017-02-25 04:08] VITALS: BP 135/82
== END 2017-02-25 04:35 | disposition home or self-care (01) ==
LOC: ER 21:15
PROC: 0D20XUZ Change Feeding Device in Upper Intestinal Tract, External Approach (ICD-10-PCS; principal; 2017-02-24)
DX: K94.20 Gastrostomy complication, unspecified (principal)
CPT/HCPCS: 99283; 36415; 82962; 85025; 80053; 43760; A9270; J3490

== ENCOUNTER 2017-02-25 15:35 | Day surgery (SDC) | payer MEDICARE, MEDICAID ==
--- NOTE | 2017-02-25 16:11 | Operative Report ---
Operative Report DATE OF SURGERY: 02/25/17 Operative Report: Pre-op diagnosis: Feeding difficulty and malfunctioning G-tube Post-op diagnosis: Feeding difficulty Surgery: G-tube replacement Medications: None Tissue removed: None Procedure: The old 22 Ukrainian gastrostomy tube was removed. The balloon was already deflated. This was replaced with another 22 Ukrainian tube. There was good flow of gastric contents after the tube was replaced. The skin was at about 7 cm on the tube. She tolerated the procedure well Plan: Resume feeding OPERATION: .
== END 2017-02-25 16:10 | disposition home or self-care (01) ==
LOC: END 15:35
PROVIDERS: ATTEND Internal Medicine Gastroenterology
PROC: 0D20XUZ Change Feeding Device in Upper Intestinal Tract, External Approach (ICD-10-PCS; principal; 2017-02-25)
DX: R63.3 Feeding difficulties (principal)
CPT/HCPCS: 43760

== ENCOUNTER 2017-03-12 10:10 | Inpatient (IN) | payer MEDICARE, MEDICAID ==
--- NOTE | 2017-03-12 10:21 | ER Document Report ---
ED General - General Stated Complaint: RESPIRATORY DISTRESS Time Seen by Provider: 03/12/17 10:16 Notes: 86-year-old female with history of stroke, minimally verbal with feeding tube and a recent diagnosis of pneumonia presents with increased respiratory difficulty for 2 days, with noisy breathing. EMS found her with "gurgly" breath sounds and a saturation of 94. She is demented/has had a stroke and cannot give a history but her niece who is also her caregiver states that her mental status has been about baseline with no fevers but she did notice that the patient was sweaty today. [place] form in hand, DO NOT INTUBATE DO NOT RESUSCITATE. TRAVEL OUTSIDE OF THE [place] IN LAST 30 DAYS: No - Related Data Allergies/Adverse Reactions: phenytoin sodium [From Dilantin] Allergy (Verified 07/12/16 14:28) phenytoin sodium extended [From Dilantin] Allergy (Verified 07/12/16 14:28) Past Medical History - General Information source: Relative Cannot obtain history due to: Dementia - Social History Smoking Status: Never Smoker Family History: Reviewed & Not Pertinent, CVA - Past Medical History Cardiac Medical History: Reports: Hx Congestive Heart Failure, Hx Coronary Artery Disease, Hx Hypercholesterolemia, Hx Hypertension Pulmonary Medical History: Reports: Hx COPD Neurological Medical History: Reports: 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, Hx Seizures - NO SEIZURE SINCE PACEMAKER 2016 Endocrine Medical History: Reports: Hx Diabetes Mellitus Type 2 GI Medical History: Reports: Hx Gastroesophageal Reflux Disease Musculoskeltal Medical History: Reports Hx Arthritis Psychiatric Medical History: Reports: Hx Dementia Denies: Hx Depression Infectious Medical History: Reports: Hx C-Diff Past Surgical History: Reports: Hx Section, Hx Cholecystectomy, Hx Hysterectomy, Hx Orthopedic Surgery - left hip, Hx Pacemaker, Hx Thyroid Surgery , Other - Peg tube - Immunizations Hx Diphtheria, Pertussis, Tetanus Vaccination: - unknown Hx Pneumococcal Vaccination: 10/05/14 Review of Systems - Review of Systems Notes: REVIEW OF SYSTEMS Unable to obtain PHYSICAL EXAMINATION General: Respiratory distress Head: Atraumatic, normocephalic ENT: Mouth opening limited, mucous memories dry Eyes: Conjunctiva normal, pupils equal, lids normal Neck: No JVD, supple, no guarding CVS: Normal rate, regular rhythm, no murmurs Resp: Shallow respirations, decreased respiratory effort. Gurgling upper respiratory noises. GI: Nondistended, soft, no tenderness to palpation, no rebound or guarding Ext: No deformities, no edema, normal range of motion in upper and lower ext Back: No CVA or midline TTP Skin: No rash, warm Lymphatic: No lymphadeopathy noted Neuro: Awake, alert. Face symmetric. Nonverbal. Does not follow commands.. -: Yes ROS unobtainable due to patient's medical condition Physical Exam - Vital signs Vitals: Resp 21 H 03/12/17 03:40 Course - Re-evaluation Re-evalutation: 03/12/17 11:17 She was seen immediately by me on arrival. On exam she looks sweaty and ill, has a decreased respiratory effort with significant congestion of the upper airway. Differential includes pneumonia tracheitis, aspiration, congestive heart failure or a combination of the above. Also concern for sepsis given recent pneumonia. Will order blood cultures, RT suction as well as BiPAP, chest x-ray EKG and labs. Patient reassessed at 11:10 AM. Doing slightly better on BiPAP. X-ray is unavailable to me because the PACS system is down and I have not heard from the radiologist. Her ECG is paced. Her labs are pending. 03/12/17 11:50 X-ray shows pneumonia. Added levaquin. Subtraction was ordered given for urinary tract infection. Lactate is less than 2 so severe sepsis I believe is off the table. Still withholding fluids given that the BNP is elevated and the patient appears hypervolemic. Had a discussion with her daughter who is her decision-maker who agrees with the CODE STATUS above. She was admitted to the hospital, I spoke with Dr. Anderson who accepted the admission to the [facility]. Agree with plan of care above. - Vital Signs Vital signs: Temp Pulse Resp BP Pulse Ox 99.7 F 17 126/65 H 98 03/12/17 11:02 03/12/17 11:46 03/12/17 11:02 03/12/17 11:46 - Laboratory Result Diagrams: 03/12/17 10:25 03/12/17 10:25 Laboratory results interpreted by me: 03/12/17 03/12/17 03/12/17 10:25 10:25 10:25 RDW 16.0 H Sodium 136.8 L Carbon Dioxide 21 L BUN 21 H Glucose 171 H NT-Pro-B Natriuret Pep 1780 H Urine Protein Ur Leukocyte Esterase Urine Ascorbic Acid 03/12/17 10:42 RDW Sodium Carbon Dioxide BUN Glucose NT-Pro-B Natriuret Pep Urine Protein 100 H Ur Leukocyte Esterase MODERATE H Urine Ascorbic Acid 20 H - Diagnostic Test Radiology reviewed: Image reviewed, Reports reviewed - EKG Interpretation by Me EKG shows normal: Sinus rhythm Rate: Normal Rhythm: NSR When compared to previous EKG there are: Previous EKG unavailable Additional EKG results interpreted by me: 03/12/17 10:[address] or T-wave changes noted. Critical Care Note - Critical Care Note Total time excluding time spent on procedures (mins): 35 Comments: The above patient is critically ill. Not including procedures, but including direct re-evaluations, speaking with patient and/or consultants, interpreting results, and documenting, I spent the total amount of minute listed listed above on critical care time Discharge - Discharge Clinical Impression: Pyelonephritis Pneumonia Qualifiers: Pneumonia type: aspiration pneumonia Aspiration pneumonia type: unspecified Laterality: right Lung location: lower lobe of lung Qualified Code(s): J69.0 - Pneumonitis due to inhalation of food and vomit Condition: Critical Disposition: ADMITTED INPATIENT Admitting Provider: Hospitalist Unit Admitted: IMCU Referrals: FRANKLIN STAPLES MD [Primary Care Provider] - Follow up as needed
[2017-03-12 10:44] LABS: ABSOLUTE BASOPHILS # (AUTO) 0.1 10^3/uL (0.0-0.2); ABSOLUTE EOSINOPHILS # (AUTO) 0.1 10^3/uL (0.0-0.6); ABSOLUTE LYMPHOCYTES (AUTO) 1.8 10^3/uL (0.5-4.7); ABSOLUTE MONOCYTES (AUTO) 1.1 10^3/uL (0.1-1.4); ABSOLUTE NEUT (AUTO) 6.7 10^3/uL (1.7-8.2); BASOPHILS % (AUTO) 0.9 % (0-2); EOSINOPHILS % (AUTO) 1.2 % (0-6); HEMATOCRIT 39.5 % (36.0-47.0); HEMOGLOBIN 12.8 g/dL (12.0-15.5); HGB HCT DIFFERENCE -1.1; LYMPHOCYTES % (AUTO) 18.4 % (13-45); MEAN CORPUSCULAR HEMOGLOBIN 29.2 pg (27.0-33.4); MEAN CORPUSCULAR HGB CONC 32.4 g/dL (32.0-36.0); MEAN CORPUSCULAR VOLUME 90 fl (80-97); MONOCYTES % (AUTO) 11.1 % (3-13); RED BLOOD COUNT 4.38 10^6/uL (3.72-5.28); SEGMENTED NEUTROPHILS % (AUTO) 68.4 % (42-78); WHITE BLOOD COUNT 9.8 10^3/uL (4.0-10.5)
[2017-03-12 11:01] LABS: ANION GAP 14 (5-19); BLOOD UREA NITROGEN 21 mg/dL (7-20); CALCIUM 8.8 mg/dL (8.4-10.2); CARBON DIOXIDE 21 mmol/L (22-30); CHLORIDE 102 mmol/L (98-107); CREATININE RESULT 0.66 mg/dL (0.52-1.25); GLUCOSE 171 mg/dL (75-110); POTASSIUM 4.2 mmol/L (3.6-5.0); SODIUM 136.8 mmol/L (137-145)
[2017-03-12 11:07] LABS: TROPONIN I 0.04 ng/mL
[2017-03-12 11:16] LABS: APPEARANCE,URINE CLEAR; BILIRUBIN,URINE NEGATIVE (NEGATIVE); GLUCOSE, URINE NEGATIVE (NEGATIVE); KETONES,URINE NEGATIVE (NEGATIVE); LEUKOCYTE ESTERASE,URINE MODERATE (NEGATIVE); NITRITE,URINE NEGATIVE (NEGATIVE); PROTEIN,URINE 100 mg/dL (NEGATIVE); UROBILINOGEN,URINE NEGATIVE mg/dL (<2.0)
[2017-03-12 11:23] LABS: BACTERIA,URINE 1+ /HPF; RBC,URINE 0-1 /HPF; WBC,URINE 20-30 /HPF
--- NOTE | 2017-03-12 11:39 | RADIOLOGY REPORT (SQ) ---
EXAM DESCRIPTION: CHEST SINGLE VIEW COMPLETED DATE/TIME: 03/12/2017 11:29 am REASON FOR STUDY: SOB COMPARISON: 02/19/2017 EXAM PARAMETERS: NUMBER OF VIEWS: One view. TECHNIQUE: Single frontal radiographic view of the chest acquired. RADIATION DOSE: NA LIMITATIONS: None. FINDINGS: LUNGS AND PLEURA: Ill-defined opacification in the right base. MEDIASTINUM AND HILAR STRUCTURES: No masses. Contour normal. HEART AND VASCULAR STRUCTURES: Heart normal in size. Normal vasculature. BONES: No acute findings. HARDWARE: Pacemaker. OTHER: No other significant finding. IMPRESSION: Cannot exclude limited right lower lobe or middle lobe pneumonia. TECHNICAL DOCUMENTATION: JOB ID: [id number] [employer]- All Rights Reserved
[2017-03-12] MEDS ORDERED: LEVOFLOXACIN 750 MG/D5W RTU 750 MG/150 ML RTUPB IV ONE (11:48)
[2017-03-12 11:59] LABS: VENOUS BLOOD HCO3 22.4 mmol/L (20-32); VENOUS BLOOD PCO2 50.6 mmHg (35-63); VENOUS BLOOD PH 7.26 (7.30-7.42)
--- NOTE | 2017-03-12 11:59 | EKG REPORT ---
SEVERITY:- ABNORMAL ECG - ATRIAL-SENSED VENTRICULAR-PACED RHYTHM : Confirmed by: Warner Solorio 12-Mar-2017 11:58:21
[2017-03-12] MEDS ORDERED: CEFTRIAXONE 1 GM/D5W RTU 1 GM/50 ML RTUPB IV ONE (13:00)
[2017-03-12] MEDS ORDERED: DEXTROSE 40% GEL 15 GM TUBE PO PRN ×4 (14:06→14:43)
[2017-03-12] MEDS ORDERED: ONDANSETRON HCL INJ/PF 4 MG/2 ML SDV IV PRN (14:06)
[2017-03-12] MEDS ORDERED: GLUCAGON,HUMAN RECOMB 1 MG INJ SUBCUT PRN (14:06)
[2017-03-12] MEDS ORDERED: ACETAMINOPHEN 650 MG SUPP.RECT PR PRN (14:06)
[2017-03-12] MEDS ORDERED: NORMAL SALINE 1000 ML 1,000 ML IV PRN (14:06)
[2017-03-12] MEDS ORDERED: DEXTROSE 50%-WATER 25 GM/50 ML DISP.SYRIN IV PRN ×4 (14:06→14:43)
[2017-03-12] MEDS ORDERED: BETHANECHOL CHLORIDE 50 MG PEG PRN (14:11)
--- NOTE | 2017-03-12 14:28 | PDOC H&P ---
History of Present Illness Admission Date/PCP: 03/12/17 12:45 FRANKLIN STAPLES MD Patient complains of: Fevers and shortness of breath History of Present Illness: The patient is an 86-year-old -[place] female well known to me from a previous hospitalization. 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 She basically can at baseline. Blink her eyes and move her head she is maintained on PEG tube feedings. She was recently admitted about a month ago for aspiration pneumonia. She was sent home with home hospice health services and did well for a period of time. She developed urinary retention during her previous hospitalization and has a Alves catheter in place. She was to follow-up with urology actually today for a voiding trial. The patient's daughter states that the patient became very flushed and febrile and developed some gurgling sounds at home again. EMS was called and she was brought to the emergency room. She was found to have evidence of a urinary tract infection as well as persistent pneumonia. She was referred for admission. Past Medical History Cardiac Medical History: Reports: Congestive Heart Failure, Coronary Artery Disease, Hyperlipidema, Hypertension Pulmonary Medical History: Reports: Chronic Obstructive Pulmonary Disease (COPD) Neurological Medical History: Reports: Ischemic CVA, Seizures - NO SEIZURE SINCE PACEMAKER 2015 Endocrine Medical History: Reports: Diabetes Mellitus Type 2 GI Medical History: Reports: Gastroesophageal Reflux Disease Musculoskeltal Medical History: Reports: Arthritis Psychiatric Medical History: Reports: Dementia Denies: Depression Hematology: Reports: Anemia - HX OF Infectious Medical History: Reports: Clostridium Difficile Past Surgical History Past Surgical History: Reports: Section, Cholecystectomy, Hysterectomy , Orthopedic Surgery - left hip, Pacemaker, Other - Peg tube Social History Information Source: Relative Lives with: Family Smoking Status: Never Smoker Frequency of Alcohol Use: None Hx Recreational Drug Use: No Drugs: None Hx Prescription Drug Abuse: No - Advance Directive Resuscitation Status: Do Not Resuscitate Family History Family History: Reviewed & Not Pertinent, CVA Parental Family History Reviewed: Yes Children Family History Reviewed: Yes Sibling(s) Family History Reviewed.: Yes Medication/Allergy Home Medications: Acidoph/L.bulg/Bif.b/S.thermop [Bacid Caplet] 1 tab PO BID 03/12/17 Amlodipine Besylate [Norvasc 5 mg Tablet] 5 mg PO DAILY 03/12/17 Bethanechol Chloride [Urecholine 50 mg Tablet] 50 mg PO BIDP PRN 03/12/17 Levothyroxine Sodium [Synthroid 0.025 mg Tablet] 0.025 mg PO Q6AM 03/12/17 Metoprolol Tartrate [Lopressor 25 mg Tablet] 25 mg PO Q12 03/12/17 Oxybutynin Chloride [Ditropan] 1 ml PO BID 03/12/17 Pantoprazole Sodium [Protonix] 40 mg PO DAILY 03/12/17 Potassium Chloride [Kaon-Cl 20 Meq/15 ml Udcup] 15 ml PO DAILY 03/12/17 Topiramate [Topamax 100 mg Tablet] 100 mg PO BID 03/12/17 Allergies/Adverse Reactions: phenytoin sodium [From Dilantin] Allergy (Verified 07/12/16 14:28) phenytoin sodium extended [From Dilantin] Allergy (Verified 07/12/16 14:28) Review of Systems ROS unobtainable: Due to mental status, Other - The patient is nonverbal Physical Exam Vital Signs: Temp Pulse Resp BP Pulse Ox 99.6 F 19 124/66 98 03/12/17 12:01 03/12/17 12:01 03/12/17 12:01 03/12/17 11:46 General appearance: PRESENT: no acute distress, obese, well-developed, other - She has BiPAP in place. Head exam: PRESENT: atraumatic, normocephalic Eye exam: PRESENT: conjunctiva pink, EOMI, PERRLA. ABSENT: scleral icterus Mouth exam: PRESENT: moist, tongue midline Respiratory exam: PRESENT: clear to auscultation geraldine, decreased breath sounds. ABSENT: rales, rhonchi, wheezes Cardiovascular exam: PRESENT: RRR. ABSENT: diastolic murmur, rubs, systolic murmur GI/Abdominal exam: PRESENT: normal bowel sounds, soft, other - She has a PEG tube in place. ABSENT: distended, guarding, mass, organolmegaly, rebound, tenderness Rectal exam: PRESENT: deferred Extremities exam: PRESENT: full ROM. ABSENT: calf tenderness, clubbing, pedal edema Musculoskeletal exam: PRESENT: other - Contractures in all 4 extremities. ABSENT: ambulatory Neurological exam: PRESENT: alert, awake Psychiatric exam: PRESENT: appropriate affect, normal mood. ABSENT: homicidal ideation, suicidal ideation Skin exam: PRESENT: dry, intact, warm. ABSENT: cyanosis, rash Results Impressions: Chest X-Ray 03/12/17 10:16 IMPRESSION: Cannot exclude limited right lower lobe or middle lobe pneumonia. Assessment & Plan - Diagnosis (1) Acute respiratory failure with hypoxia and hypercapnia Plan: Currently the patient is on BiPAP. Via the EMS reports the patient's oxygen dropped quite low in transit. She has evidence of underlying pneumonia on her chest x-ray. We will continue BiPAP support and hopefully wean her off soon. She will continue oxygen as needed. We will continue aggressive breathing treatments and therapy as outlined below. (2) Pneumonia Qualifiers: Pneumonia type: aspiration pneumonia Aspiration pneumonia type: unspecified Laterality: right Lung location: lower lobe of lung Qualified Code(s): J69.0 - Pneumonitis due to inhalation of food and vomit Plan: Th the patient likely has aspirated however she was recently hospitalized. For now we will cover her with broad-spectrum IV antibiotics to include vancomycin, Zosyn and Levaquin. (3) UTI (urinary tract infection) Plan: Urine and blood cultures are pending. She should be adequately covered with the above antibiotics. We will await culture results. (4) Sacral wound Qualifiers: Encounter type: initial encounter Qualified Code(s): S31.000A - Unspecified open wound of lower back and pelvis without penetration into retroperitoneum, initial encounter Plan: The patient has a stage III decubitus ulcer. Continue local wound care. (5) CVA (cerebral vascular accident) Qualifiers: CVA mechanism: unspecified Qualified Code(s): I63.9 - Cerebral infarction, unspecified Plan: The patient has a history of CVA with significant residual deficits. She is maintained with the PEG tube and is a phasic. She is bedbound at baseline. (6) Coronary artery disease Plan: Continue home regimen for now I am going to stop her metoprolol and amlodipine as her blood pressure is a little on the low side. These will be added back if she begins to improve. (7) Hypertension Plan: As above. I am going to hold her amlodipine and metoprolol. (8) Obesity (BMI 30.0-34.9) Plan: For now we will hold her tube feedings. I have consulted the clinical dietitian and we will likely resume these if the patient begins to improve. (9) Chronic diastolic (congestive) heart failure Plan: At this point she does not appear to be acutely volume overloaded. We will have to watch her quite closely. (10) Diabetes mellitus Plan: I will add sliding scale coverage. (11) Do not resuscitate Plan: Discussions were had with the family during her previous hospitalization. The patient is a DO NOT RESUSCITATE. I did speak to the patient's daughter on the phone and for now she would like aggressive care but stopped short of heroic measures at the end of life. No chest compressions no intubation no escalation to the ICU for pressors. - Time Critical Time spent with patient: 25-34 minutes - Inpatient Certification Based on my medical assessment, after consideration of the patient's comorbidities, presenting symptoms, or acuity I expect that the services needed warrant INPATIENT care.: Yes I certify that my determination is in accordance with my understanding of Medicare's requirements for reasonable and necessary INPATIENT services [42 CFR 412.3e].: Yes Medical Necessity: Need For IV Fluids - The patient will be admitted as an inpatient. I certainly expect her mid hospitalization to span greater than 2 midnights. She is bedbound with multiple comorbidities with pneumonia as well as a urinary tract infection. Further discussions need to be had with the patient's family if she does not improve. Her prognosis is quite guarded at this point., Need for IV Antibiotics
[2017-03-12] MEDS ORDERED: BETHANECHOL CHLORIDE 25 MG TABLET PEG PRN (14:37)
[2017-03-12] MEDS ORDERED: GLUCAGON,HUMAN RECOMB 1 MG INJ IM PRN (14:43)
[2017-03-12] MEDS ORDERED: INSULIN LISPRO 100 UNIT/ML 3 ML VIAL SUBCUT PRN (14:43)
[2017-03-12] MEDS ORDERED: VANCOMYCIN HCL 0 MG in DEXTROSE 5%-WATER 250 ML IV NR (14:45)
[2017-03-12] MEDS ORDERED: NORMAL SALINE 1000 ML 1,000 ML IV ONE (15:05)
[2017-03-12] MEDS: MORPHINE SULFATE 10 MG/ML INJ IV PRN ×3 (15:56→19:43)
[2017-03-12] MEDS ORDERED: SCOPOLAMINE HYDROBROMIDE 1.5 MG PATCH.TD72 TD ONE (16:00)
[2017-03-12] MEDS ORDERED: PIPERACILLIN SODIUM/TAZOBACTAM 3.375 GM in NORMAL SALINE 100 ML IV ONE (16:00)
[2017-03-12] MEDS: LORAZEPAM INJ 2 MG/1 ML VIAL IV PRN ×2 (16:42→19:45)
[2017-03-12] MEDS ORDERED: VANCOMYCIN HCL 1,250 MG in DEXTROSE 5%-WATER 250 ML IV SCH (17:00)
--- NOTE | 2017-03-12 17:59 | Progress Note ---
Provider Note Provider Note: Advance care planning note: Date 03/12/2017 Present at the meeting: Patient's family to include both daughters who are her surrogate decision makers Diagnosis: Aspiration pneumonia Acute hypoxic and hypercapnic respiratory failure Urinary tract infection CVA with significant residual deficits and dysphasia requiring PEG tube Bedbound status Stage III decubitus ulcer Discussion: Initially the patient was admitted to the hospital. The first discussion I had with the family they stated that they wanted us to do what we could with IV fluids and antibiotics. I was called within an hour by the nursing staff who informed me that she was having a significant worsening of her status. She was not tolerating the BiPAP. She was on 100% nonrebreather and struggling to breathe. She was gurgling and the family was quite distressed. After a long discussion decision was made to just keep her comfortable. She will be transition to comfort measures today. They want no further treatment for all of her medical problems. She will be kept comfortable with IV morphine and IV Ativan. We are going to place a scopolamine patch. She will likely remain in the hospital until she passes. Everybody present at the meeting was in agreement with this plan. At the wishes of the family she will be placed on comfort measures. Additional time spent: 35 minutes
[2017-03-12] MEDS ORDERED: OXYBUTYNIN CHLORIDE SYRUP 1 MG/1 ML 60 ML PEG SCH (18:00)
[2017-03-12] MEDS ORDERED: LACTOBACILLUS ACIDOPHILUS 250 MG TAB PO SCH (18:00)
[2017-03-12] MEDS ORDERED: IPRATROPIUM/ALBUTEROL 0.5-2.5 MG/3 ML AMPUL NEB SCH (20:00)
[2017-03-12] MEDS ORDERED: PIPERACILLIN SODIUM/TAZOBACTAM 3.375 GM in NORMAL SALINE 100 ML IV SCH (21:00)
[2017-03-12] MEDS ORDERED: TOPIRAMATE 100 MG TABLET PEG SCH (22:00)
[2017-03-12] MEDS ORDERED: DOXYCYCLINE HYCLATE 100 MG in DEXTROSE 5%-WATER 250 ML IV SCH (22:00)
[2017-03-13] MEDS: LORAZEPAM INJ 2 MG/1 ML VIAL IV PRN ×4 (00:19→20:21)
[2017-03-13] MEDS: MORPHINE SULFATE 10 MG/ML INJ IV PRN ×5 (00:19→20:21)
[2017-03-13] MEDS ORDERED: LEVOTHYROXINE SODIUM 0.025 MG TABLET PEG SCH (06:00)
[2017-03-13] MEDS ORDERED: LANSOPRAZOLE 30 MG TAB.RAP.DR PEG SCH (10:00)
[2017-03-13] MEDS ORDERED: ENOXAPARIN SODIUM INJ 30 MG/0.3 ML DISP.SYRIN SUBCUT SCH (10:00)
[2017-03-13] MEDS ORDERED: POTASSIUM CHLORIDE 20 MEQ/15 ML UDCUP PEG SCH (10:00)
[2017-03-13] MEDS ORDERED: LEVOFLOXACIN 750 MG/D5W RTU 150 ML IV SCH (10:00)
--- NOTE | 2017-03-13 16:08 | PDOC PROGRESS REPORT ---
Subjective Progress Note for:: 03/13/17 Subjective:: Yesterday afternoon the patient's respiratory status worsened and the patient's family placed her on comfort measures. She has been maintained on IV morphine as well as IV Ativan. She has a scopolamine patch in place. Today when I saw the patient she was resting comfortably. She is unresponsive in a review of systems could not be obtained. I did discuss the plan of care with the family at the bedside and all of their questions were answered. They feel as if she is at peace and is quite comfortable. Reason For Visit: UTI, PNEUMONIA Physical Exam Vital Signs: Temp Pulse Resp BP Pulse Ox 101.4 F H 23 H 132/69 H 100 03/12/17 17:01 03/12/17 17:01 03/12/17 17:00 03/12/17 17:01 Intake & Output 03/12/17 03/13/17 03/14/17 06:59 06:59 06:59 Intake Total 6 Output Total 200 Balance -194 Weight 77.1 kg General appearance: PRESENT: other - She appears to be comfortable. She is not responsive. Head exam: PRESENT: atraumatic, normocephalic Mouth exam: PRESENT: other - Oral mucosa is dry Respiratory exam: PRESENT: other - She has coarse breath sounds throughout all lung ayala anteriorly Cardiovascular exam: PRESENT: tachycardia GI/Abdominal exam: PRESENT: other - Abdomen appears to be soft and nontender. She has hypoactive bowel sounds Extremities exam: PRESENT: other - All 4 extremities are cool. She is developing some edema. Neurological exam: ABSENT: alert, awake Psychiatric exam: PRESENT: other - She appears to be quite comfortable Skin exam: PRESENT: dry, intact, warm. ABSENT: cyanosis, rash Results Impressions: Chest X-Ray 03/12/17 10:16 IMPRESSION: Cannot exclude limited right lower lobe or middle lobe pneumonia. Assessment & Plan - Diagnosis (2) Pneumonia Qualifiers: Pneumonia type: aspiration pneumonia Aspiration pneumonia type: unspecified Laterality: right Lung location: lower lobe of lung Qualified Code(s): J69.0 - Pneumonitis due to inhalation of food and vomit (4) Sacral wound Qualifiers: Encounter type: initial encounter Qualified Code(s): S31.000A - Unspecified open wound of lower back and pelvis without penetration into retroperitoneum, initial encounter (5) CVA (cerebral vascular accident) Qualifiers: CVA mechanism: unspecified Qualified Code(s): I63.9 - Cerebral infarction, unspecified (12) Palliative care encounter Is this a current diagnosis for this admission?: Yes Plan: The patient remains on comfort measures. She is significantly progressed since yesterday. She is quite comfortable on IV morphine and Ativan. I have asked the family to notify me if she starts requiring morphine on a regular basis we could consider a morphine drip. In any event the patient is quite comfortable at this point. She will likely pass here in the hospital. - Time Time Spent with patient: 25-34 minutes - Inpatient Certification Based on my medical assessment, after consideration of the patient's comorbidities, presenting symptoms, or acuity I expect that the services needed warrant INPATIENT care.: Yes I certify that my determination is in accordance with my understanding of Medicare's requirements for reasonable and necessary INPATIENT services [42 CFR 412.3e].: Yes Medical Necessity: Other - Inpatient hospitalization remains necessary for end- of-life care.
[2017-03-14] MEDS: LORAZEPAM INJ 2 MG/1 ML VIAL IV PRN ×5 (03:45→21:54)
[2017-03-14] MEDS: MORPHINE SULFATE 10 MG/ML INJ IV PRN ×5 (03:45→21:54)
--- NOTE | 2017-03-14 11:23 | PDOC PROGRESS REPORT ---
Subjective Progress Note for:: 03/14/17 Subjective:: the patient is an 86-year-old -[place] female well known to me from a previous hospitalization. 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 She can blink her eyes and move her head but otherwise she is bedbound and maintained on PEG tube feedings. She was recently admitted around a month ago for aspiration pneumonia. She was sent home with home health services and did well for a short period of time. She had developed urinary retention during her previous hospitalization and had a Alves catheter in place. She was actually scheduled to follow-up with urology for a voiding trial on the day of admission. The patient was brought to the emergency room after becoming very flushed and febrile at home. She was gurgling. In the emergency room she was found to have evidence of a urinary tract infection as well as persistent pneumonia and she was referred for admission. Initially the family wanted us to do everything we could with IV antibiotics to treat her infection. However shortly after admission she developed worsening respiratory distress. Please see advanced care planning note for details of this discussion. Ultimately the family decided to transition her to comfort measures and just keep her comfortable. All support was stopped. She no longer is receiving IV antibiotics. She has IV morphine, IV Ativan and a scopolamine patch in place. Yesterday the patient seemed to have progressed and had developed some apneic breathing. This morning the patient actually is awake. She is alert and trying to communicate with her family. I had a long discussion regarding the plan of care with the family members at the bedside. All wish to continue with comfort measures. I answered all of their questions to date. The patient does appear to be quite comfortable and has only required a few doses of IV morphine over the past 24 hours. Reason For Visit: UTI, PNEUMONIA Physical Exam Vital Signs: Temp Pulse Resp BP Pulse Ox 101.4 F H 23 H 132/69 H 100 03/12/17 17:01 03/12/17 17:01 03/12/17 17:00 03/12/17 17:01 Intake & Output 03/13/17 03/14/17 03/15/17 06:59 06:59 06:59 Intake Total 6 12 Output Total 200 300 Balance -194 -288 Weight 77.1 kg 77.1 kg General appearance: PRESENT: other - The patient is resting comfortably in no acute distress. She is making eye contact today and will wake up at times and then fall back asleep. She does appear to be trying to communicate with her family. Head exam: PRESENT: atraumatic, normocephalic Mouth exam: PRESENT: dry mucosa Respiratory exam: PRESENT: rhonchi, other - The patient has coarse breath sounds throughout all lung ayala anteriorly. Cardiovascular exam: PRESENT: tachycardia. ABSENT: diastolic murmur, rubs, systolic murmur GI/Abdominal exam: PRESENT: diminished bowel sounds - This morning times update date look at my message here just need to do that really quickly just keep this 1C figured it is is years. Just so proactive Rectal exam: PRESENT: deferred Extremities exam: PRESENT: other - All 4 extremities are warm. There is no mottling yet Neurological exam: PRESENT: awake. ABSENT: motor sensory deficit Skin exam: PRESENT: dry, intact, warm. ABSENT: cyanosis, rash Results Impressions: Chest X-Ray 03/12/17 10:16 IMPRESSION: Cannot exclude limited right lower lobe or middle lobe pneumonia. Assessment & Plan - Diagnosis (2) Pneumonia Qualifiers: Pneumonia type: aspiration pneumonia Aspiration pneumonia type: unspecified Laterality: right Lung location: lower lobe of lung Qualified Code(s): J69.0 - Pneumonitis due to inhalation of food and vomit (4) Sacral wound Qualifiers: Encounter type: initial encounter Qualified Code(s): S31.000A - Unspecified open wound of lower back and pelvis without penetration into retroperitoneum, initial encounter (5) CVA (cerebral vascular accident) Qualifiers: CVA mechanism: unspecified Qualified Code(s): I63.9 - Cerebral infarction, unspecified (12) Palliative care encounter Is this a current diagnosis for this admission?: Yes Plan: The patient will remain on comfort measures. She has a scopolamine patch in place. She has IV morphine available every hour as well as IV Ativan. I have updated the patient's family and all of their questions have been answered. If she begins to require morphine on a more regular basis we could consider a morphine drip as we go along. The patient will likely pass here in the hospital. - Time Time Spent with patient: 25-34 minutes - Inpatient Certification Medical Necessity: Other - Inpatient hospitalization remains necessary for end- of-life care. I do believe the patient will pass here in the hospital. It appears that her will be in a minute will be eminent likely within the next 24-48 hours.
[2017-03-14] MEDS ORDERED: SCOPOLAMINE HYDROBROMIDE 1.5 MG PATCH.TD72 TD ONE ×2 (15:00→19:00)
[2017-03-15] MEDS: LORAZEPAM INJ 2 MG/1 ML VIAL IV PRN ×3 (05:00→14:08)
[2017-03-15] MEDS: MORPHINE SULFATE 10 MG/ML INJ IV PRN ×4 (05:00→20:44)
--- NOTE | 2017-03-15 12:44 | PDOC PROGRESS REPORT ---
Subjective Progress Note for:: 03/15/17 Subjective:: The patient is an 86-year-old female who is incapacitated secondary to a previous stroke. The patient was admitted during this hospitalization for recurrent pneumonia and a urinary tract infection. The patient is now on comfort measures. Reason For Visit: UTI, PNEUMONIA Physical Exam Vital Signs: Temp Pulse Resp BP Pulse Ox 99.5 F 81 16 101/45 L 98 03/15/17 03:50 03/15/17 03:50 03/15/17 03:50 03/15/17 03:50 03/15/17 03:50 Intake & Output 03/14/17 03/15/17 03/16/17 06:59 06:59 06:59 Intake Total 12 0 Output Total 300 725 Balance -288 -725 Weight 77.1 kg 77.1 kg Additional comments: The patient appears to be resting comfortably in bed. Her daughter was at the bedside. Her exam was otherwise deferred. Results Impressions: Chest X-Ray 03/12/17 10:16 IMPRESSION: Cannot exclude limited right lower lobe or middle lobe pneumonia. Assessment & Plan - Diagnosis (1) Palliative care encounter Is this a current diagnosis for this admission?: Yes Plan: The patient will remain in the hospital on comfort measures which include a scopolamine patch, intravenous morphine and Ativan as needed. - Time Time Spent with patient: Less than 15 minutes - Inpatient Certification Medical Necessity: Need for Pain Control
[2017-03-16] MEDS: MORPHINE SULFATE 10 MG/ML INJ IV PRN ×8 (02:16→23:32)
[2017-03-16] MEDS: LORAZEPAM INJ 2 MG/1 ML VIAL IV PRN ×6 (02:16→23:32)
[2017-03-16 02:19] VITALS: BP 128/49
--- NOTE | 2017-03-16 11:49 | PDOC PROGRESS REPORT ---
Subjective Progress Note for:: 03/16/17 Subjective:: The patient is an 86-year-old female who is incapacitated secondary to a previous stroke. The patient was admitted during this hospitalization for recurrent pneumonia and a urinary tract infection. The patient is now on comfort measures. Reason For Visit: UTI, PNEUMONIA Physical Exam Vital Signs: Temp Pulse Resp BP Pulse Ox 99.4 F 81 20 128/49 H 99 03/16/17 00:52 03/16/17 00:52 03/16/17 00:52 03/16/17 00:52 03/16/17 00:52 Intake & Output 03/15/17 03/16/17 03/17/17 06:59 06:59 06:59 Intake Total 0 0 Output Total 725 320 Balance -725 -320 Weight 77.1 kg Additional comments: Today, the patient was noted to have a fairly prominent productive cough. She is no longer answering questions per her granddaughter who is at the bedside. Overall, she appears to be comfortable. Results Impressions: Chest X-Ray 03/12/17 10:16 IMPRESSION: Cannot exclude limited right lower lobe or middle lobe pneumonia. Assessment & Plan - Diagnosis (1) Palliative care encounter Is this a current diagnosis for this admission?: Yes Plan: The patient will remain in the hospital on comfort measures which include a scopolamine patch, intravenous morphine and Ativan as needed. Today, I discussed withdrawing oxygen with the patient's granddaughter. She thinks that this is a good idea. She will discuss it with her other family members. - Time Time Spent with patient: Less than 15 minutes - Inpatient Certification Medical Necessity: Need for Pain Control
[2017-03-17] MEDS ORDERED: MORPHINE SULFATE 10 MG/ML INJ ONE (00:39)
[2017-03-17] MEDS ORDERED: MORPHINE SULFATE 10 MG/ML INJ IV PRN ×2 (00:41→01:00)
[2017-03-17] MEDS ORDERED: SCOPOLAMINE HYDROBROMIDE 1.5 MG PATCH.TD72 TD SCH (10:00)
--- NOTE | 2017-03-17 17:12 | Death Summary ---
Summary Date : 03/17/17 Resuscitation Status: Comfort Measures Only - Final Diagnosis (1) Palliative care encounter Is this a current diagnosis for this admission?: Yes Hospital Course:: Patient is an 86-year-old -[place] female who has suffered a previous CVA. Prior to this hospitalization the patient was essentially bedbound. Approximately 5 weeks prior to this admission the patient was admitted with an acute aspiration event. She was discharged on hospice care. She was stable for several weeks but came back to the hospital with a recurrent aspiration pneumonia and urinary tract infection. The patient was placed on comfort measures and earlier today.
== END 2017-03-17 01:15 | disposition expired | DRG 189 ==
LOC: ER 10:10 → EH 12:45 → 4N 17:29
PROVIDERS: ADMIT Internal Medicine; ATTEND Internal Medicine
PROC: 5A09357 Assistance with Respiratory Ventilation, Less than 24 Consecutive Hours, Continuous Positive Airway Pressure (ICD-10-PCS; principal; 2017-03-12)
DX: J96.02 Acute respiratory failure with hypercapnia (principal); J69.0 Pneumonitis due to inhalation of food and vomit; L89.153 Pressure ulcer of sacral region, stage 3; I50.32 Chronic diastolic (congestive) heart failure; N39.0 Urinary tract infection, site not specified; J96.01 Acute respiratory failure with hypoxia; Z51.5 Encounter for palliative care; Z66 Do not resuscitate; I69.320 Aphasia following cerebral infarction; I11.0 Hypertensive heart disease with heart failure; E66.9 Obesity, unspecified; Z68.33 Body mass index [BMI] 33.0-33.9, adult; I25.10 Atherosclerotic heart disease of native coronary artery without angina pectoris; E78.5 Hyperlipidemia, unspecified; J44.9 Chronic obstructive pulmonary disease, unspecified; E11.9 Type 2 diabetes mellitus without complications; K21.9 Gastro-esophageal reflux disease without esophagitis; M19.90 Unspecified osteoarthritis, unspecified site; Z93.1 Gastrostomy status; Z74.01 Bed confinement status; Z79.899 Other long term (current) drug therapy; Z90.49 Acquired absence of other specified parts of digestive tract; Z90.710 Acquired absence of both cervix and uterus; Z88.8 Allergy status to other drugs, medicaments and biological substances
CPT/HCPCS: 36415; 71010; 80048; 81001; 82803; 83605; 83880; 84484; 85025; 87040; 87086; 87088; 87186; 93005; 93010; 94660; 96365; 99291; J1956; J2060; J2270; J3490